=== PATIENT | female | born 1955 | race Caucasian/White ===

== ENCOUNTER 2017-10-20 13:29 | Emergency (ER) | payer OTHER ==
[~2017-10-20] VITALS: Ht 170.2 cm; Wt 142.9 kg
[~2017-10-20 13:29] MED LIST: ACEBUTCAFT PO; ALBIPROI INH; ALBU8HFA2 INH; ALBU90OI INH; AMLO10 PO; AMOX500 PO; ASPI325 PO; ASPI81CH PO; ASPI81EC PO; ATEN50 PO; AZIT250 PO; AZIT500 PO; BIOTENE1000 ML MM; BUSP10 PO; CAND16 PO; CHOL10002 PO; CYCL10 PO; DICL75ER PO; DIPH50; DIPH50 PO; DOXE10 PO; DULO60 PO; ERGO50000 PO; FISH1000 PO; FURO20 PO; FURO40 PO; GABA300 PO; GABA600 PO; GUAI600T33 PO; HYDACE5; HYDACE5 PO; HYDACE5325 PO; HYDACE7.5 PO; IBUP600 PO; IBUP800 PO; KETO15TC TOP; LEVSOD150 PO; LISI20 PO; METF500 PO; NAPR500 PO; NAPR550 PO; OXYACE5T PO; OXYC5; OXYCODONE; PRED20 PO; PROM25 PO; Percocet 5-3251 EACH PO; ROPI2 PO; ROPINIROLE HCL2 MG PO; RXOXYACE PO; SIMV10 PO; SIMV40 PO; TIOT18 IH; TIOT18 INH; TOPI50 PO; Ventolin Soln3 ML INH; Zithromax250 MG PO; [UNRECOGNIZED DRUG - OTHER] PO; [UNRECOGNIZED DRUG - REMARK]; [UNRECOGNIZED DRUG - SUPPLY] INH
== END 2017-10-20 14:24 | disposition home or self-care (01) ==
LOC: ER 13:29
DX: S93.601A Unspecified sprain of right foot, initial encounter (principal); S93.602A Unspecified sprain of left foot, initial encounter; S40.811A Abrasion of right upper arm, initial encounter; W17.89XA Other fall from one level to another, initial encounter; Z79.899 Other long term (current) drug therapy; Z79.84 Long term (current) use of oral hypoglycemic drugs; E11.9 Type 2 diabetes mellitus without complications; J44.9 Chronic obstructive pulmonary disease, unspecified; I10 Essential (primary) hypertension; E78.00 Pure hypercholesterolemia, unspecified; Z87.891 Personal history of nicotine dependence
CPT/HCPCS: 99282

== ENCOUNTER 2017-12-02 16:49 | Emergency (ER) | payer OTHER ==
[~2017-12-02] VITALS: Ht 170.2 cm; Wt 141.5 kg
[2017-12-02] MEDS ORDERED: METF500C (16:58)
[2017-12-02] MEDS ORDERED: OXYC10TA19 (16:58)
[2017-12-02] MEDS ORDERED: BACL10 (16:59)
[2017-12-02 17:33] LABS: BASOPHILS ABSOLUTE AUTO 0.03 K/mm3 (0.00-0.23); BASOPHILS PERCENT AUTO 0 % (0-2); EOSINOPHILS ABSOLUTE AUTO 0.11 K/mm3 (0.00-0.68); EOSINOPHILS PERCENT AUTO 1 % (0-6); Hemoglobin 11.1 g/dL (11.5-16.0); IMMATURE GRAN ABSOLUTE AUTO 0.04 K/mm3 (0.00-0.10); IMMATURE GRAN PERCENT AUTO 0 % (0-1); LYMPHOCYTES ABSOLUTE AUTO 2.39 K/mm3 (0.84-5.20); LYMPHOCYTES PERCENT AUTO 24 % (21-46); MONOCYTES PERCENT AUTO 7 % (4-13); Mean Corpuscular Volume 97 fL (80-100); Mean Platelet Volume 9.8 fL (9.1-12.4); NEUTROPHILS ABSOLUTE AUTO 6.56 K/mm3 (1.96-9.15); NEUTROPHILS PERCENT AUTO 67 % (41-73); Platelet Count 236 K/mm3 (150-400); RDW Coefficient Variation 15.5 % (11.7-14.2); RDW Standard Deviation 55.1 fL (35.1-46.3); Red Blood Cell Count 3.83 M/mm3 (3.80-5.20); White Blood Cell Count 9.83 K/mm3 (4.00-11.30)
[2017-12-02 17:45] LABS: International Normalized Ratio 0.99; Prothrombin Time Results 10.2 Sec (9.7-11.5)
[2017-12-02 17:53] LABS: Alanine Aminotransfer (ALT/SGP 22 U/L (12-78); Albumin, Blood 3.3 g/dL (3.4-5.0); Albumin/Globulin Ratio 0.9 (0.8-1.8); Alk Phos 92 U/L (50-136); Anion Gap 7 mmol/L (6-16); Aspartate Aminotrans (AST/SGOT 18 U/L (12-37); Bilirubin, Total 0.3 mg/dL (0.1-1.0); Blood Urea Nitrogen 18 mg/dL (8-24); Bun/Creatinine Ratio 22.7 (12.0-20.0); CO2, Blood 28 mmol/L (21-32); Calcium, Blood 9.1 mg/dL (8.5-10.1); Chloride, Blood 105 mmol/L (98-108); Creatinine, Blood 0.79 mg/dL (0.40-1.00); Globulin, Blood 3.7 g/dL (2.2-4.0); Glomerular Filtration Rate >60 (60-); Glucose, Blood 107 mg/dL (70-99); Potassium, Blood 3.8 mmol/L (3.5-5.5); Sodium, Blood 140 mmol/L (136-145); Troponin I <0.015 ng/mL (0.000-0.040)
[2017-12-02] MEDS ORDERED: Percocet 5-3251 EACH PO (20:02)
== END 2017-12-02 20:25 | disposition home or self-care (01) ==
LOC: ER 16:49
PROVIDERS: Emergency Medicine
DX: K85.90 Acute pancreatitis without necrosis or infection, unspecified (principal); J44.9 Chronic obstructive pulmonary disease, unspecified; E11.9 Type 2 diabetes mellitus without complications; I10 Essential (primary) hypertension; E78.00 Pure hypercholesterolemia, unspecified; E66.01 Morbid (severe) obesity due to excess calories; F32.9 Major depressive disorder, single episode, unspecified; Z79.899 Other long term (current) drug therapy; Z79.84 Long term (current) use of oral hypoglycemic drugs; Z87.891 Personal history of nicotine dependence; Z68.42 Body mass index [BMI] 45.0-49.9, adult
CPT/HCPCS: 71260; 76705; 80053; 83690; 84484; 85025; 85610; 85730; 93005; 93010; 96361; 96374; 96375; 99285-25; J2405; J3010; J7030; Q9967

== ENCOUNTER 2018-07-11 13:45 | Day surgery (SDC) | payer OTHER ==
[~2018-07-11] VITALS: Ht 170.2 cm; Wt 144.0 kg
[~2018-07-11 13:45] MED LIST changes: +BACL10; +BENZ100A PO; +METF500C; +OXYC10TA19
--- NOTE | 2018-07-11 15:35 | NUR ---
07/11/[address] INJECTED 10ML OF MARCAINE 0.5%V 1:200,000 FROM [id number] INTO LEFT WRIST. PULSE OX MONITORING DURING INJECTION. PT TOLERATED WELL.
== END 2018-07-11 16:27 | disposition home or self-care (01) ==
LOC: ORSCSDS 13:45
PROVIDERS: Orthopaedic Surgery
PROC: 01N54ZZ Release Median Nerve, Percutaneous Endoscopic Approach (ICD-10-PCS; principal; 2018-07-11 15:30)
DX: G56.02 Carpal tunnel syndrome, left upper limb (principal); E11.9 Type 2 diabetes mellitus without complications; I10 Essential (primary) hypertension; F32.9 Major depressive disorder, single episode, unspecified; E78.5 Hyperlipidemia, unspecified; G47.33 Obstructive sleep apnea (adult) (pediatric); E03.9 Hypothyroidism, unspecified; J44.9 Chronic obstructive pulmonary disease, unspecified; Z87.891 Personal history of nicotine dependence; E66.01 Morbid (severe) obesity due to excess calories; Z68.43 Body mass index [BMI] 50.0-59.9, adult; Z79.84 Long term (current) use of oral hypoglycemic drugs; Z79.899 Other long term (current) drug therapy
CPT/HCPCS: 82947; J0690; J2250; J3010; J7120

== ENCOUNTER 2018-10-09 16:03 | Inpatient (IN) | payer OTHER ==
[~2018-10-09] VITALS: Ht 170.2 cm; Wt 157.1 kg
[~2018-10-09 16:03] MED LIST changes: -BACL10; +BACL10 PO; -GABA600 PO; -METF500C; +METF500C PO; -OXYC10TA19; +OXYC10TA19 PO
[2018-10-09 18:34] LABS: PCO2 Arterial 52.7 mmHg (35-45); PO2 Arterial 63.8 mmHg (80-100); pH Blood Arterial 7.34 (7.35-7.45)
[2018-10-09 18:53] LABS: BASOPHILS ABSOLUTE AUTO 0.03 K/mm3 (0.00-0.23); BASOPHILS PERCENT AUTO 0 % (0-2); EOSINOPHILS ABSOLUTE AUTO 0.08 K/mm3 (0.00-0.68); EOSINOPHILS PERCENT AUTO 1 % (0-6); Hematocrit 37.8 % (33.0-51.0); Hemoglobin 11.1 g/dL (11.5-16.0); IMMATURE GRAN ABSOLUTE AUTO 0.02 K/mm3 (0.00-0.10); IMMATURE GRAN PERCENT AUTO 0 % (0-1); LYMPHOCYTES ABSOLUTE AUTO 2.03 K/mm3 (0.84-5.20); LYMPHOCYTES PERCENT AUTO 27 % (21-46); MONOCYTES ABSOLUTE AUTO 0.44 K/mm3 (0.16-1.47); MONOCYTES PERCENT AUTO 6 % (4-13); Mean Corpuscular HGB Conc 29.4 g/dL (31.5-36.5); Mean Corpuscular Volume 96 fL (80-100); Mean Platelet Volume 9.7 fL (9.1-12.4); NEUTROPHILS ABSOLUTE AUTO 4.96 K/mm3 (1.96-9.15); NEUTROPHILS PERCENT AUTO 66 % (41-73); Platelet Count 195 K/mm3 (150-400); RDW Coefficient Variation 17.2 % (11.7-14.2); RDW Standard Deviation 60.5 fL (35.1-46.3); Red Blood Cell Count 3.96 M/mm3 (3.80-5.20); White Blood Cell Count 7.56 K/mm3 (4.00-11.30)
[2018-10-09 19:18] LABS: Alanine Aminotransfer (ALT/SGP 19 U/L (12-78); Albumin, Blood 3.5 g/dL (3.4-5.0); Albumin/Globulin Ratio 0.9 (0.8-1.8); Alk Phos 99 U/L (50-136); Anion Gap 4 mmol/L (6-16); Aspartate Aminotrans (AST/SGOT 15 U/L (12-37); Bilirubin, Total 0.4 mg/dL (0.1-1.0); Blood Urea Nitrogen 10 mg/dL (8-24); Bun/Creatinine Ratio 16.1 (12.0-20.0); CO2, Blood 30 mmol/L (21-32); Calcium, Blood 9.1 mg/dL (8.5-10.1); Chloride, Blood 109 mmol/L (98-108); Creatinine, Blood 0.62 mg/dL (0.40-1.00); Globulin, Blood 3.8 g/dL (2.2-4.0); Glomerular Filtration Rate >60 (60-); Glucose, Blood 97 mg/dL (70-99); Potassium, Blood 3.9 mmol/L (3.5-5.5); Sodium, Blood 143 mmol/L (136-145); Total Protein, Blood 7.3 g/dL (6.4-8.2); Troponin I <0.015 ng/mL (0.000-0.040)
[2018-10-11 04:53] LABS: Anion Gap 2 mmol/L (6-16); Blood Urea Nitrogen 20 mg/dL (8-24); Bun/Creatinine Ratio 27.9 (12.0-20.0); CO2, Blood 33 mmol/L (21-32); Calcium, Blood 8.9 mg/dL (8.5-10.1); Chloride, Blood 106 mmol/L (98-108); Creatinine, Blood 0.72 mg/dL (0.40-1.00); Glomerular Filtration Rate >60 (60-); Glucose, Blood 135 mg/dL (70-99); Potassium, Blood 4.1 mmol/L (3.5-5.5); Sodium, Blood 141 mmol/L (136-145)
[2018-10-12 04:54] LABS: Anion Gap 4 mmol/L (6-16); Blood Urea Nitrogen 26 mg/dL (8-24); Bun/Creatinine Ratio 34.7 (12.0-20.0); CO2, Blood 35 mmol/L (21-32); Calcium, Blood 8.8 mg/dL (8.5-10.1); Chloride, Blood 103 mmol/L (98-108); Creatinine, Blood 0.75 mg/dL (0.40-1.00); Glomerular Filtration Rate >60 (60-); Glucose, Blood 108 mg/dL (70-99); Potassium, Blood 3.9 mmol/L (3.5-5.5); Sodium, Blood 142 mmol/L (136-145)
[2018-10-12] MEDS ORDERED: BENZ100A PO (12:35)
[2018-10-12] MEDS ORDERED: TIOT18 INH (12:36)
[2018-10-12] MEDS ORDERED: TORSE20 PO (12:36)
== END 2018-10-12 14:41 | disposition home or self-care (01) | DRG 291 ==
LOC: ER 16:03 → MEDS 19:49 → ER 19:49 → MEDS 19:49 → ENPENDDIS 10-12 11:31 → MEDS 10-12 14:41
PROVIDERS: Emergency Medicine; Internal Medicine; Physician Assistant; ADMIT Hospitalist
DX: I11.0 Hypertensive heart disease with heart failure (principal); J96.01 Acute respiratory failure with hypoxia; Z68.43 Body mass index [BMI] 50.0-59.9, adult; I50.33 Acute on chronic diastolic (congestive) heart failure; F32.9 Major depressive disorder, single episode, unspecified; E11.9 Type 2 diabetes mellitus without complications; E66.01 Morbid (severe) obesity due to excess calories; G47.30 Sleep apnea, unspecified; J44.9 Chronic obstructive pulmonary disease, unspecified; Z87.891 Personal history of nicotine dependence; Z79.84 Long term (current) use of oral hypoglycemic drugs; Z79.899 Other long term (current) drug therapy
CPT/HCPCS: 36415; 36600; 71046; 80048; 80053; 82803; 82947; 83880; 84145; 84443; 84484; 85025; 93005; 93010; 93306; 94640; 94660; 94761; 94762; 96374; 99285-25; A9270; G0378; J1650; J1940; J2930

== ENCOUNTER 2018-10-20 22:46 | Emergency (ER) | payer OTHER ==
[~2018-10-20] VITALS: Ht 170.2 cm; Wt 150.6 kg
[~2018-10-20 22:46] MED LIST changes: +TORSE20 PO
[2018-10-20 22:58] LABS: BASOPHILS ABSOLUTE AUTO 0.03 K/mm3 (0.00-0.23); BASOPHILS PERCENT AUTO 0 % (0-2); EOSINOPHILS ABSOLUTE AUTO 0.12 K/mm3 (0.00-0.68); EOSINOPHILS PERCENT AUTO 1 % (0-6); Hematocrit 37.2 % (33.0-51.0); Hemoglobin 11.1 g/dL (11.5-16.0); IMMATURE GRAN ABSOLUTE AUTO 0.02 K/mm3 (0.00-0.10); IMMATURE GRAN PERCENT AUTO 0 % (0-1); LYMPHOCYTES ABSOLUTE AUTO 2.85 K/mm3 (0.84-5.20); LYMPHOCYTES PERCENT AUTO 34 % (21-46); MONOCYTES ABSOLUTE AUTO 0.46 K/mm3 (0.16-1.47); MONOCYTES PERCENT AUTO 5 % (4-13); Mean Corpuscular HGB 28.7 pg (26.0-34.0); Mean Corpuscular HGB Conc 29.8 g/dL (31.5-36.5); Mean Corpuscular Volume 96 fL (80-100); Mean Platelet Volume 10.3 fL (9.1-12.4); NEUTROPHILS ABSOLUTE AUTO 4.99 K/mm3 (1.96-9.15); NEUTROPHILS PERCENT AUTO 59 % (41-73); Platelet Count 219 K/mm3 (150-400); RDW Coefficient Variation 16.5 % (11.7-14.2); RDW Standard Deviation 58.3 fL (35.1-46.3); Red Blood Cell Count 3.87 M/mm3 (3.80-5.20); White Blood Cell Count 8.47 K/mm3 (4.00-11.30)
[2018-10-20 23:19] LABS: Alanine Aminotransfer (ALT/SGP 27 U/L (12-78); Albumin, Blood 3.4 g/dL (3.4-5.0); Albumin/Globulin Ratio 0.9 (0.8-1.8); Alk Phos 94 U/L (50-136); Anion Gap 5 mmol/L (6-16); Aspartate Aminotrans (AST/SGOT 20 U/L (12-37); Bilirubin, Total 0.3 mg/dL (0.1-1.0); Blood Urea Nitrogen 20 mg/dL (8-24); Bun/Creatinine Ratio 20.7 (12.0-20.0); CO2, Blood 29 mmol/L (21-32); Calcium, Blood 9.6 mg/dL (8.5-10.1); Chloride, Blood 106 mmol/L (98-108); Creatinine, Blood 0.97 mg/dL (0.40-1.00); Globulin, Blood 3.6 g/dL (2.2-4.0); Glomerular Filtration Rate >60 (60-); Glucose, Blood 144 mg/dL (70-99); Potassium, Blood 4.4 mmol/L (3.5-5.5); Sodium, Blood 140 mmol/L (136-145); Troponin I <0.015 ng/mL (0.000-0.040)
== END 2018-10-21 02:00 | disposition home or self-care (01) ==
LOC: ER 22:46
PROVIDERS: Emergency Medicine
DX: R07.9 Chest pain, unspecified (principal); Z79.899 Other long term (current) drug therapy; Z79.84 Long term (current) use of oral hypoglycemic drugs; J44.9 Chronic obstructive pulmonary disease, unspecified; E11.9 Type 2 diabetes mellitus without complications; I10 Essential (primary) hypertension; F32.9 Major depressive disorder, single episode, unspecified; Z87.891 Personal history of nicotine dependence
CPT/HCPCS: 71046; 80053; 83735; 83880; 84484; 85025; 93005; 93010; 99285-25

== ENCOUNTER 2019-01-16 22:11 | Emergency (ER) | payer OTHER ==
[~2019-01-16] VITALS: Ht 170.2 cm; Wt 158.8 kg
[2019-01-16 22:48] LABS: BASOPHILS ABSOLUTE AUTO 0.03 K/mm3 (0.00-0.23); BASOPHILS PERCENT AUTO 0 % (0-2); EOSINOPHILS ABSOLUTE AUTO 0.21 K/mm3 (0.00-0.68); EOSINOPHILS PERCENT AUTO 3 % (0-6); Hematocrit 32.4 % (33.0-51.0); Hemoglobin 9.7 g/dL (11.5-16.0); IMMATURE GRAN ABSOLUTE AUTO 0.06 K/mm3 (0.00-0.10); IMMATURE GRAN PERCENT AUTO 1 % (0-1); LYMPHOCYTES ABSOLUTE AUTO 2.28 K/mm3 (0.84-5.20); LYMPHOCYTES PERCENT AUTO 29 % (21-46); MONOCYTES ABSOLUTE AUTO 0.57 K/mm3 (0.16-1.47); MONOCYTES PERCENT AUTO 7 % (4-13); Mean Corpuscular HGB 30.1 pg (26.0-34.0); Mean Corpuscular HGB Conc 29.9 g/dL (31.5-36.5); Mean Corpuscular Volume 101 fL (80-100); Mean Platelet Volume 9.8 fL (9.1-12.4); NEUTROPHILS PERCENT AUTO 60 % (41-73); Platelet Count 237 K/mm3 (150-400); RDW Coefficient Variation 15.2 % (11.7-14.2); RDW Standard Deviation 56.3 fL (35.1-46.3); Red Blood Cell Count 3.22 M/mm3 (3.80-5.20); White Blood Cell Count 7.95 K/mm3 (4.00-11.30)
[2019-01-16 23:08] LABS: Alanine Aminotransfer (ALT/SGP 21 U/L (12-78); Albumin, Blood 3.6 g/dL (3.4-5.0); Albumin/Globulin Ratio 0.9 (0.8-1.8); Alk Phos 102 U/L (50-136); Anion Gap 6 mmol/L (6-16); Aspartate Aminotrans (AST/SGOT 17 U/L (12-37); Bilirubin, Total 0.4 mg/dL (0.1-1.0); Blood Urea Nitrogen 15 mg/dL (8-24); Bun/Creatinine Ratio 22.2 (12.0-20.0); CO2, Blood 27 mmol/L (21-32); Calcium, Blood 9.4 mg/dL (8.5-10.1); Chloride, Blood 107 mmol/L (98-108); Creatinine, Blood 0.68 mg/dL (0.40-1.00); Globulin, Blood 3.8 g/dL (2.2-4.0); Glomerular Filtration Rate >60 (60-); Glucose, Blood 111 mg/dL (70-99); Potassium, Blood 3.8 mmol/L (3.5-5.5); Sodium, Blood 140 mmol/L (136-145); Total Protein, Blood 7.4 g/dL (6.4-8.2); Troponin I <0.015 ng/mL (0.000-0.040)
[2019-01-17 01:24] LABS: PCO2 Arterial 50.7 mmHg (35-45); PO2 Arterial 117 mmHg (80-100); pH Blood Arterial 7.33 (7.35-7.45)
[2019-01-17] MEDS ORDERED: DAPS100 PO (01:26)
[2019-01-17] MEDS ORDERED: Ropinirole HCl2 MG PO (01:31)
[2019-01-17] MEDS ORDERED: CARV6.25 PO (01:31)
[2019-01-17] MEDS ORDERED: SPIR25 PO (01:32)
[2019-01-17] MEDS ORDERED: Prednisone20 MG PO (02:50)
== END 2019-01-17 03:50 | disposition home or self-care (01) ==
LOC: ER 22:11
PROVIDERS: Emergency Medicine
DX: J44.1 Chronic obstructive pulmonary disease with (acute) exacerbation (principal); I11.0 Hypertensive heart disease with heart failure; I50.9 Heart failure, unspecified; E11.9 Type 2 diabetes mellitus without complications; E78.00 Pure hypercholesterolemia, unspecified; F32.9 Major depressive disorder, single episode, unspecified; Z87.891 Personal history of nicotine dependence; Z79.899 Other long term (current) drug therapy; Z79.84 Long term (current) use of oral hypoglycemic drugs
CPT/HCPCS: 36415; 36600; 71046; 80053; 82803; 83880; 84484; 85025; 93005; 93010; 94640; 96374; 96375; 99285-25; J2930; J3475

== ENCOUNTER 2019-02-14 23:28 | Inpatient (IN) | payer OTHER ==
[~2019-02-14] VITALS: Ht 170.2 cm; Wt 158.8 kg
[~2019-02-14 23:28] MED LIST changes: +CARV6.25 PO; -CHOL10002 PO; +DAPS100 PO; +LEVSOD50 PO; +Prednisone20 MG PO; +Ropinirole HCl2 MG PO; +SPIR25 PO; +TORS10 PO; -TORSE20 PO; +VITAMIN D31 ML PO
[2019-02-15 00:21] LABS: Source, Urine Catheter
[2019-02-15 00:24] LABS: Blood, Urine 1+ (Neg); Glucose Qualitative, Urine Neg (Neg); Ketones, Urine Neg (Neg); Leukocyte Esterase, Urine Neg (Neg); Nitrite, Urine Neg (Neg); Protein, Urine 1+ (Neg); Urobilinogen, Urine NORM (Normal)
[2019-02-15 00:32] LABS: Appearance, Urine Hazy (Clear); Bilirubin, Urine 1+ (Neg); Color, Urine Amber (P-Yellow)
[2019-02-15 00:33] LABS: Amorphous Mod (0-Heavy); Bacteria Few /hpf; Hyaline Casts 50-100 /lpf (0-2); Red Blood Cells, Urine 0-2 /hpf (0-2); Squamous Epithelial Cells Mod /hpf (Few); White Blood Cells, Urine Not Seen /hpf (0-5)
[2019-02-15 00:41] LABS: BASOPHILS ABSOLUTE AUTO 0.02 K/mm3 (0.00-0.23); BASOPHILS PERCENT AUTO 0 % (0-2); EOSINOPHILS ABSOLUTE AUTO 0.13 K/mm3 (0.00-0.68); EOSINOPHILS PERCENT AUTO 2 % (0-6); Hematocrit 29.2 % (33.0-51.0); Hemoglobin 8.5 g/dL (11.5-16.0); IMMATURE GRAN ABSOLUTE AUTO 0.03 K/mm3 (0.00-0.10); IMMATURE GRAN PERCENT AUTO 0 % (0-1); LYMPHOCYTES ABSOLUTE AUTO 2.07 K/mm3 (0.84-5.20); LYMPHOCYTES PERCENT AUTO 29 % (21-46); MONOCYTES ABSOLUTE AUTO 0.54 K/mm3 (0.16-1.47); MONOCYTES PERCENT AUTO 8 % (4-13); Mean Corpuscular HGB 30.5 pg (26.0-34.0); Mean Corpuscular HGB Conc 29.1 g/dL (31.5-36.5); Mean Corpuscular Volume 105 fL (80-100); Mean Platelet Volume 10.2 fL (9.1-12.4); NEUTROPHILS PERCENT AUTO 61 % (41-73); Platelet Count 233 K/mm3 (150-400); RDW Coefficient Variation 15.2 % (11.7-14.2); RDW Standard Deviation 58.9 fL (35.1-46.3); Red Blood Cell Count 2.79 M/mm3 (3.80-5.20); White Blood Cell Count 7.19 K/mm3 (4.00-11.30)
[2019-02-15 00:59] LABS: International Normalized Ratio 0.96; Prothrombin Time Results 10.2 Sec (9.7-11.5)
[2019-02-15 01:04] LABS: Albumin, Blood 3.4 g/dL (3.4-5.0); Bilirubin, Total 0.3 mg/dL (0.1-1.0); Calcium, Blood 8.4 mg/dL (8.5-10.1); Creatinine, Blood 3.54 mg/dL (0.40-1.00); Globulin, Blood 3.4 g/dL (2.2-4.0); Potassium, Blood 4.9 mmol/L (3.5-5.5); Total Protein, Blood 6.8 g/dL (6.4-8.2)
[2019-02-15 03:27] LABS: PO2 Arterial 115 mmHg (80-100)
[2019-02-15 03:28] LABS: pH Blood Arterial 7.21 (7.35-7.45)
--- NOTE | 2019-02-15 04:50 | NUR ---
PT ARRIVES FROM ER, ADMITTED PCU STATUS PT TO ICU ROOM 2, PT RESPONDS TO VERBAL STIMULI ON ARRIVAL BY OPENING EYES, MUMBLED OCCASIONAL WORDS IN RESPONSE HOWEVER SOMEWHAT NONSENSICAL. HRR, SINUS WITH SINUS ARRHYTHMIA NOTED ON MONITOR, PULSES PALPABLE, SKIN WARM AND DRY, CAP REFILL 3 SEC BILAT LOWER EXTREMITIES. LUNGS WITH EXP WHEEZES T/O, DIM BASES BILAT, BIPAP IN USE, ADJUSTMENTS PER RT AT BEDSIDE AT THIS TIME, SATS MID 90S, PT TOLERATING BIPAP WELL AT THIS TIME. ABD DISTENDED, FIRM TO PALP, NORMOACTIVE BOWEL TONES X 4. TEMP PROBE CENTENO IN PLACE DRAINING HAZY BRY URINE, GREATER THAN 350 ML PRESENT IN DRAINAGE BAG ON ARRIVAL. IV ACCESS 22G FIELD START NOTED TO RIGHT WRIST, FLUSHES WELL, NO REDNESS, SWELLING, OR DRAINAGE NOTED. SCD'S APPLIED PER ORDERS, NORMAL SALINE STARTED AT 150 ML/HR PER ORDERS, PROTONIX GTT CONTINUES. WILL MONITOR FOR CHANGES.
[2019-02-15 05:10] LABS: Hematocrit 29.3 % (33.0-51.0); Hemoglobin 8.5 g/dL (11.5-16.0); Mean Corpuscular Volume 104 fL (80-100); Platelet Count 217 K/mm3 (150-400); RDW Standard Deviation 56.8 fL (35.1-46.3); Red Blood Cell Count 2.83 M/mm3 (3.80-5.20); White Blood Cell Count 7.28 K/mm3 (4.00-11.30)
[2019-02-15 05:27] LABS: International Normalized Ratio 0.97; Prothrombin Time Results 10.3 Sec (9.7-11.5)
--- NOTE | 2019-02-15 08:20 | NUR ---
ASSUMED CARE AT 0700. REPORT FROM RYLEE SANDERS. DR SALEEM AT BEDSIDE FOR ASSESSMENT. PT ON BIPAP, 03/11, 25%. LUNGS DIMISHED THROUGHOUT. PT MORBIDLY OBESE. OPENS EYES TO VERBAL STIMULI. FOLLOWS SIMPLE DIRECTIONS. MUMBLING SPEECH. ABD FIRM, DISTENDED. NO PAIN c PALPATION. CENTENO PATENT AND DRAINING TO GRAVITY. BRY URINE c SEDIMENT. VSS. PROTONIX INFUSING. WILL PLAN FOR POWERGLIDE PLACEMENT TODAY. CALL LIGHT IN REACH. WILL CONTINUE TO MONITOR.
[2019-02-15 08:22] LABS: Hematocrit 28.4 % (33.0-51.0); Hemoglobin 8.3 g/dL (11.5-16.0); Mean Corpuscular HGB 30.2 pg (26.0-34.0); Mean Corpuscular HGB Conc 29.2 g/dL (31.5-36.5); Mean Corpuscular Volume 103 fL (80-100); Mean Platelet Volume 10.1 fL (9.1-12.4); Platelet Count 221 K/mm3 (150-400); RDW Coefficient Variation 15.1 % (11.7-14.2); RDW Standard Deviation 57.3 fL (35.1-46.3); Red Blood Cell Count 2.75 M/mm3 (3.80-5.20); White Blood Cell Count 6.94 K/mm3 (4.00-11.30)
[2019-02-15 08:31] LABS: Bun/Creatinine Ratio 16.8 (12.0-20.0); Calcium, Blood 8.3 mg/dL (8.5-10.1); Creatinine, Blood 3.04 mg/dL (0.40-1.00); Potassium, Blood 5.3 mmol/L (3.5-5.5)
[2019-02-15 08:32] LABS: U Amphetamine Screen Not Detected; U Barbituate Screen Not Detected; U Benzodiazapine Screen Not Detected; U Buprenorphine Screen Not Detected; U Cannabinoids Screen Not Detected; U Cocaine Screen Not Detected; U Methadone Screen Not Detected; U Methamphetamine Screen Not Detected; U Opiates Screen Not Detected; U Oxycodone Screen DETECTED; U Phencyclidine Screen Not Detected; U Propoxyphene Screen Not Detected
--- NOTE | 2019-02-15 11:20 | NUR ---
PARTIAL HX OBTAINED FROM SISTER. REPORT TO [facility]. PT TRANSFERRED. ALL BELONGINGS c PT.
--- NOTE | 2019-02-15 11:33 | NUR ---
PT ARRIVED FROM ICU, BIPAP IN PLACE, SUDS IN PLACE, FLUIDS INFUSING. PT CONFUSED, DROWSY, LOOKS AROUND TO VERBAL SIMULI, VSS,
--- NOTE | 2019-02-15 16:33 | NUR ---
PT AWAKENS EASILY TO VERBAL STIMULI, ABLE TO ANSWER YES AND NO QUESTIONS, REMAINS VERY DROWSY. VSS
--- NOTE | 2019-02-15 16:50 | NUR ---
SHIFT NOTE PT ARRIVED FROM ICU WITH DECREASED LOC, OCCASIONALLY OPEN EYES TO VERBAL STIMULI. PT TRASNFERED BETWEEN GURNEYS WITH USE OF GINA LIFT. ARRIVED ON BIPAP WITH RT PRESENT PT APPEARS TO TOLERATE BIPAP WELL. NO FAMILY WITH PT. LS DIMENISHED T/O. VSS ON ARRIVAL. T/O SHIFT PT BECAME MORE ARROUSABLE, ANSWERING YES AND NO QUESTIONS ALTHOUGH REMAINS DROWSY. FAMILY DID COME TO VISIT, DAUGHTER LEFT NUMBER ON ROOM WHITE BOARD. PT REPOSITIONS SELF OFTEN FOR COMFORT.
--- NOTE | 2019-02-15 20:41 | NUR ---
ASSUMED CARE OF PATIENT AT [facility] 1900 FROM KENDAL Aden RN. PATIENT RESPONDS TO VERBAL STIMULUS; ANSWERS YES OR NO; MUMBLES. PATIENT FALLS BACK ASLEEP EASILY. PATIENT BEDREST; WEAKNESS; OBESE; Q2H TURN WITH CEILING LIFT. NO S/S OF PAIN NOTED. BIPAP IN PLACE 03/11 35% FIO2; WAS 25% FIO2 AT START OF SHIFT; DESAT TO 86% WHILE SLEEPING. NSR ON TELE; OXYGEN SATURATION ABOVE 90% ON BIPAP; L/S DIMINISHED T/O. NS INFUSING TO PIV AT SHIFT CHANGE ON 05/25 BAG; NO ORDERS FOR FLUIDS. DR. MIRANDA CALLED DUE TO PATIENT BEING NPO; DIABETIC; AC/HS CBG; NO MORE ORDERS FOR FLUIDS; LAST CBG WAS 91 AND PROTONIC GTT WAS NOT INFUSING; GI HAD PUT IN NOTE FOR PROTONIX BID IV; ORDERS RECIEVED FOR Q4 CBG; D5NS AT 75ML, PROTONIX IV BID; CALL FOR INSULIN ORDERS WHEN CBG IMPROVE. URINARY CATH DRAINING. SCDS IN PLACE; GLORIA PURDY CURRENTLY RESTING IN BED; CALL LIGHT IN REACH; BED IN LOWEST POSISTION; BED ALARM ON; WILL CONTINUE TO MONITOR AND ASSESS UNTIL END OF SHIFT.
[2019-02-16 04:37] LABS: BASOPHILS ABSOLUTE AUTO 0.01 K/mm3 (0.00-0.23); BASOPHILS PERCENT AUTO 0 % (0-2); EOSINOPHILS ABSOLUTE AUTO 0.08 K/mm3 (0.00-0.68); EOSINOPHILS PERCENT AUTO 2 % (0-6); Hematocrit 29.3 % (33.0-51.0); Hemoglobin 8.3 g/dL (11.5-16.0); IMMATURE GRAN ABSOLUTE AUTO 0.02 K/mm3 (0.00-0.10); IMMATURE GRAN PERCENT AUTO 0 % (0-1); LYMPHOCYTES ABSOLUTE AUTO 1.28 K/mm3 (0.84-5.20); LYMPHOCYTES PERCENT AUTO 24 % (21-46); MONOCYTES ABSOLUTE AUTO 0.44 K/mm3 (0.16-1.47); MONOCYTES PERCENT AUTO 8 % (4-13); Mean Corpuscular HGB 29.3 pg (26.0-34.0); Mean Corpuscular HGB Conc 28.3 g/dL (31.5-36.5); Mean Corpuscular Volume 104 fL (80-100); Mean Platelet Volume 10.3 fL (9.1-12.4); NEUTROPHILS ABSOLUTE AUTO 3.45 K/mm3 (1.96-9.15); NEUTROPHILS PERCENT AUTO 65 % (41-73); Platelet Count 208 K/mm3 (150-400); RDW Coefficient Variation 14.9 % (11.7-14.2); RDW Standard Deviation 56.4 fL (35.1-46.3); Red Blood Cell Count 2.83 M/mm3 (3.80-5.20); White Blood Cell Count 5.28 K/mm3 (4.00-11.30)
[2019-02-16 04:49] LABS: Bun/Creatinine Ratio 24.8 (12.0-20.0); Calcium, Blood 8.4 mg/dL (8.5-10.1); Creatinine, Blood 1.57 mg/dL (0.40-1.00); Potassium, Blood 5.2 mmol/L (3.5-5.5)
--- NOTE | 2019-02-16 06:19 | NUR ---
PATIENT SLEPT ABOUT TEN HOURS LAST NIGHT WITH BIPAP IN PLACE. VSS. NO ACUTE CHANGES TO REPORT. WILL CONTINUE TO MONITOR AND ASSESS UNTIL END OF SHIFT.
--- NOTE | 2019-02-16 08:20 | NUR ---
PT REMOVED FROM BIPAP IS MAINTING SPO2 AT 94% ON 4L O2 VIA NASAL CANNULA
--- NOTE | 2019-02-16 10:46 | NUR ---
THIS RN ARRIVED TO ROOM AT 0930 PT WITNESSED PULLING IN FROM LT HAND STS "THAT WAS STUPID" PRESSURE DRESSING APPLIED TO HAND TO STOP BLEEDING. PT'S LINENS CHANGED. PT ABLE TO ROLL SIDE TO SIDE. PT SOBBING, CONFUSED ORIENTED ONLY TO SELF. PT ATTEMPTING TO CLIMB FROM BED, DIFFULT TO REDIRECT, STS "I HAVE TO PEE" ATTEMPTING TO VERBALLY REDIRECT PT FROM EXITING BED, ADDIITIONAL STAFF CALLED TO ROOM WAREHOUSE RECORD CLERK JODY AND PCT NATALI. PT SHOUTING DEMANDING TO CALL DAUGHTER WHEN PROVIDED WITH PHONE BEGINS STATING SHE IS GOING TO CALL 911 SHE IS NOT ALLOWED TO GET OUT OF BED. PT RE-ORIENTED TO ROOM BUT DOES NOT RECALL TEACHING FOR LONG BEFORE AGAIN TRYING TO EXIT THE BED ADN STATING SHE IS CALLING 911. PT HAS ALSO COMPRIMISED POWERGLIDE TO DANIEL AT WHILE ATTEMPTING TO EXIT BED. WAREHOUSE RECORD CLERK JODY CALLED TO ROOM TO ASSESS POWERGLIDE, SHE WAS ABLE TO CHANGE THE DRESSING BUT IV WILL NOT FLUSH WELL.
--- NOTE | 2019-02-16 11:51 | NUR ---
PT REMAINS CONFUSED, IS COOPERATIVE AT THIS TIME HAS NOT ATTEMPTED TO EXIT GURNEY
--- NOTE | 2019-02-16 18:32 | NUR ---
SHIFT NOTE AT THE BEGINING OF SHIFT PT WAS SLEEPING, EASY TO ARROUSE WITH VERBAL SIMULI. DECISION WAS MADE TO REMOVE BIPAP FOR TRIAL, PT BECOMES MORE AWAKE ONCE BIPAP REMOVED. PT THEN BEGAN TRYING TO EXIT KENDELL, SWINING ARMS AT STAFF, SHOUTING OUT THAT SHE IS BEING HELD HOSTAGE AND ASKING FOR PHONE TO CALL 911. PT PULLED MANNY FROM RT HAND, IV SITE DRESSED WITH PRESSURE DRESSING. PT CONFUSED UNABLE TO ORIENT PT, THIS RN WAS AT BEDSIDE FOR 1.5 HOURS TO MONITOR PT SHE IS VERY CONFUSED. PT PROGRESSIVELY T/O SHIFT BECOMES MORE ALERT AND ORIENTED IS INTERMITTENTLY ORIENTED TO SELF AND PLACE. PT REMOVES NUMEROUS FEM STOPS, AND ATTEMPTS TO REMOVED HER CENTENO, LINES ARE ABLE TO BE CONCEALED SO THAT SHE STOPS PULLING AT CENTENO. PT OTHERWISE MAINTAINED SPO2 AT 95% ON 5L O2 THAT WAS TITRATED TO 3L O2 WHICH SHE WAS ABLE TO MAINTAIN SPO2 OF 94% ON THAT 3L. CLEAR LIQUID DIET WAS CHANGED TO ADA AFTER A CALL TO DR SALEEM TOWARDS THE END OF THE SHIFT. PT PROVIDED WITH DINNER TRAY WHICH SHE WAS REFUSING "IT'S DIET" PT REMINDED OF HER ADA DIET, FAMILY THEN EXPRESSED CONCERN THAT PT WAS BEING GIVEN "DIET FOOD" ALL ARE AGAIN EDUCATED THAT SUGAR SODA WILL NOT BE PRVODED PART OF AN ADA DIET.
--- NOTE | 2019-02-16 19:59 | NUR ---
ASSUMED CARE Pt presents lying in bed on right side. When addressing pt, she turns self independantly, answers questions appropriately but with some delay in response. Also, when asked what pt's daughters name is, pt responds "melissa", then when asked where she is, pt responds "melissa. wait I mean [facility]". VSS, breathing easy and unlabored on 3L NC. Tylenol given d/t complaint of headache at 5/10. Pt able to swallow pills whole with water. Pt is in no apparent sign of distress. SCDs on and functioning. Will continue to monitor and provide care per orders.
--- NOTE | 2019-02-16 21:18 | NUR ---
DAUGHTER JOLENE AT BEDSIDE; UPDATED ON PLAN OF CARE. DAUGHTER IS TO STAY OVER THIS NIGHT. PT STAT LOCK REPLACED ON BOTH CENTENO AND POWERGLIDE, POWERGLIDE DSNG CHANGED THIS SHIFT. POWERGLIDE FLUSHES PATENT.
--- NOTE | 2019-02-16 22:45 | NUR ---
Provider called: Dr. Macias called; CBG changed from q4 to ACHS d/t diet order. Insulin low sliding scale ordered per provider.
--- NOTE | 2019-02-16 22:54 | NUR ---
PT PLACED ON BIPAP FOR SLEEP AT THIS TIME
--- NOTE | 2019-02-17 02:32 | NUR ---
Pt all bipap at 0230 per pt request. NC placed on pt at 3L; o2 saturations remains >92%; denies SOB or difficulty breathing at this time. Will continue to monitor and provide care per orders.
[2019-02-17 03:26] LABS: BASOPHILS ABSOLUTE AUTO 0.01 K/mm3 (0.00-0.23); BASOPHILS PERCENT AUTO 0 % (0-2); EOSINOPHILS ABSOLUTE AUTO 0.08 K/mm3 (0.00-0.68); EOSINOPHILS PERCENT AUTO 2 % (0-6); Hematocrit 27.8 % (33.0-51.0); Hemoglobin 8.1 g/dL (11.5-16.0); IMMATURE GRAN ABSOLUTE AUTO 0.02 K/mm3 (0.00-0.10); IMMATURE GRAN PERCENT AUTO 0 % (0-1); LYMPHOCYTES ABSOLUTE AUTO 1.57 K/mm3 (0.84-5.20); LYMPHOCYTES PERCENT AUTO 33 % (21-46); MONOCYTES ABSOLUTE AUTO 0.34 K/mm3 (0.16-1.47); MONOCYTES PERCENT AUTO 7 % (4-13); Mean Corpuscular HGB 30.7 pg (26.0-34.0); Mean Corpuscular HGB Conc 29.1 g/dL (31.5-36.5); Mean Corpuscular Volume 105 fL (80-100); Mean Platelet Volume 9.9 fL (9.1-12.4); NEUTROPHILS ABSOLUTE AUTO 2.73 K/mm3 (1.96-9.15); NEUTROPHILS PERCENT AUTO 57 % (41-73); Platelet Count 189 K/mm3 (150-400); RDW Coefficient Variation 14.6 % (11.7-14.2); RDW Standard Deviation 57.5 fL (35.1-46.3); Red Blood Cell Count 2.64 M/mm3 (3.80-5.20); White Blood Cell Count 4.75 K/mm3 (4.00-11.30)
[2019-02-17 03:41] LABS: Anion Gap 3 mmol/L (6-16); Blood Urea Nitrogen 20 mg/dL (8-24); Bun/Creatinine Ratio 21.6 (12.0-20.0); CO2, Blood 27 mmol/L (21-32); Calcium, Blood 8.8 mg/dL (8.5-10.1); Chloride, Blood 115 mmol/L (98-108); Creatinine, Blood 0.92 mg/dL (0.40-1.00); Glomerular Filtration Rate >60 (60-); Glucose, Blood 113 mg/dL (70-99); Potassium, Blood 4.7 mmol/L (3.5-5.5); Sodium, Blood 145 mmol/L (136-145)
--- NOTE | 2019-02-17 05:59 | NUR ---
Shift Summary VSS this shift, pt alternates between 3L NC (baseline) and BIPAP. Pt is alert this shift and oriented to person, place, event, but disoriented to date and time. Pt can identify family member in room and able to answer most questions apprpriately however some simple questions needs cues to answer appropriately. No acute declines noted from initial shift assessment. Pt remains with zhao catheter, patent and draining with approx 1200 ml output this shift. Pt has powerglide to DANIEL, flushes and draws patent. Dressing changed this shift. Pt has not attempted to pull on lines or cords this shift, follows commands, and cooperative with care. this pt requires bedpan for BM. CBG ACHS, insulin on low SS per Dr. Macias. Pt with daughter at bedside this night. Will continue to monitor and provide care per orders until day RN assumes care.
--- NOTE | 2019-02-17 15:54 | NUR ---
Spiritual care visit conducted. Patient shares about the events that led to her hospitalization and what was discovered once she was admitted. Patient tells me about her family unit complications and about her maria victoria. I listen empathically, normalize her experience and provide prayer. Patient responds well and shows signs of an elevated mood. I will continue to remain available to patient and family.
--- NOTE | 2019-02-17 17:02 | NUR ---
SHIFT SUMMARY PT RESTING QUIETLY ON BIPAP THIS AM, DURING SHIFT REPORT. PT WOKE EASILY FOR CARE. CBG'S WNL'S. DR SALEEM IN EARLY TO SEE PT. JACOBO BALLARD D/C'D PER ORDERS. PT HAS BEEN UP WITH 1P SBA USING FWW TO BTHRM AND BACK. CALLS APPROPRIATELY FOR ASSIST. PT REPORTED NAUSEA WHEN FIRST AWAKE; MEDICATED PER EMAR. NO FURTHER C/O. PT HAS BEEN PLEASANT AND CO-OP. A&O, AND CONTINUES TO IMPROVE THRU OUT THE DAY. PT ORIGINALLY ADMITTED FOR POSSIBLE GIB, BUT FOUND TO BE HEMORRHOIDS. CALAZIME LOTION APPLIED. PT REPORTED IT HELPFUL. PER SHIFT REPORT, PT TO F/U OUTPT FOR HEMORRHOIDS. PT IS MORBIDLY OBESE, MAKING MOBILITY A LITTLE MORE DIFFICULT, BUT IMPROVING IN THAT WELL. BASELINE 3L O2 WNL. HX OF DM, CHF, HTN, COPD AND RIA. CALL LT IN REACH.
[2019-02-18 05:15] LABS: Anion Gap 5 mmol/L (6-16); Blood Urea Nitrogen 16 mg/dL (8-24); Bun/Creatinine Ratio 18.2 (12.0-20.0); CO2, Blood 26 mmol/L (21-32); Calcium, Blood 8.9 mg/dL (8.5-10.1); Chloride, Blood 112 mmol/L (98-108); Creatinine, Blood 0.88 mg/dL (0.40-1.00); Glomerular Filtration Rate >60 (60-); Glucose, Blood 115 mg/dL (70-99); Potassium, Blood 4.5 mmol/L (3.5-5.5); Sodium, Blood 143 mmol/L (136-145)
--- NOTE | 2019-02-18 06:50 | NUR ---
Shift Summary VSS this shift, pt with no acute declines to note and no complaints throughout the shift. Pt pain within proportion, denies need for pain medication for management this shift. No acute signs of distress, breathing remains easy, even, unlabored on baseline NC at 3L. Pt with powerglide; S/L; no acute changes from initial shift assessment. Pt to bsc for voiding, repositions self to comfort. Pt changed positions multiple times independantly this shift. Pt remains alert and oriented. Handoff given to day Rn who assumes care
--- NOTE | 2019-02-18 12:34 | NUR ---
DISCHARGE NOTE PT ALERT AND ORIENTED. VS STABLE. DISCHARGE INSTRUCTIONS PROVIDED. MEDICATIONS GONE OVER WITH PATIENT. ALL QUESTIONS ANSWERED. PT DAUGHTER IN WITH PORTABLE O2. POWERGLIDE TO RIGHT UPPER ARM REMOVED AND INTACT. PT TAKEN OUT BY WHEELCHAIR.
== END 2019-02-18 12:39 | disposition home or self-care (01) | DRG 91 ==
LOC: ER 23:28 → PCU 02-15 04:30 → ICUW 02-15 04:30 → ICUE 02-15 04:49 → PCU 02-15 11:24
PROVIDERS: Emergency Medicine; Hospitalist; ADMIT Internal Medicine
PROC: 5A09357 Assistance with Respiratory Ventilation, Less than 24 Consecutive Hours, Continuous Positive Airway Pressure (ICD-10-PCS; principal; 2019-02-15)
DX: G92 Toxic encephalopathy (principal); J96.22 Acute and chronic respiratory failure with hypercapnia; K62.5 Hemorrhage of anus and rectum; I13.0 Hypertensive heart and chronic kidney disease with heart failure and stage 1 through stage 4 chronic kidney disease, or unspecified chronic kidney disease; N17.9 Acute kidney failure, unspecified; D62 Acute posthemorrhagic anemia; I50.32 Chronic diastolic (congestive) heart failure; Z68.43 Body mass index [BMI] 50.0-59.9, adult; E66.2 Morbid (severe) obesity with alveolar hypoventilation; T48.201A Poisoning by unspecified drugs acting on muscles, accidental (unintentional), initial encounter; K64.9 Unspecified hemorrhoids; E66.01 Morbid (severe) obesity due to excess calories; E03.9 Hypothyroidism, unspecified; J44.9 Chronic obstructive pulmonary disease, unspecified; Z99.81 Dependence on supplemental oxygen; Z87.891 Personal history of nicotine dependence; E11.22 Type 2 diabetes mellitus with diabetic chronic kidney disease; N18.3 Chronic kidney disease, stage 3 (moderate); Z79.84 Long term (current) use of oral hypoglycemic drugs
CPT/HCPCS: 36415; 36600; 51702; 70450; 71045; 74176; 80048; 80053; 81001; 82272; 82803; 82947; 83036; 84443; 85025; 85027; 85610; 85730; 86850; 86900; 86901; 93005; 93010; 94660; 94762; 96365; 96366; 96375; 99285-25; A9270; C9113; J2310; J2765; J7030; J7042

== ENCOUNTER → 2019-04-09 | Outpatient (CLI) | payer OTHER | END | disposition home or self-care (01) | LOC: LAB SHORT 10:41 → PLD 10:41 | DX: D48.5 Neoplasm of uncertain behavior of skin (principal) | CPT/HCPCS: 88305 ==

== ENCOUNTER → 2019-04-24 | Outpatient (CLI) | payer OTHER | END | disposition home or self-care (01) | LOC: LAB SHORT 08:13 → PLD 08:13 | DX: C44.619 Basal cell carcinoma of skin of left upper limb, including shoulder (principal) | CPT/HCPCS: 88305 ==

== ENCOUNTER 2019-07-15 05:54 | Emergency (ER) | payer OTHER ==
[~2019-07-15] VITALS: Ht 170.2 cm; Wt 155.6 kg
[2019-07-15 06:30] LABS: BASOPHILS ABSOLUTE AUTO 0.02 K/mm3 (0.00-0.23); BASOPHILS PERCENT AUTO 0 % (0-2); EOSINOPHILS ABSOLUTE AUTO 0.08 K/mm3 (0.00-0.68); EOSINOPHILS PERCENT AUTO 2 % (0-6); Hemoglobin 9.9 g/dL (11.5-16.0); IMMATURE GRAN ABSOLUTE AUTO 0.02 K/mm3 (0.00-0.10); IMMATURE GRAN PERCENT AUTO 0 % (0-1); LYMPHOCYTES ABSOLUTE AUTO 1.06 K/mm3 (0.84-5.20); LYMPHOCYTES PERCENT AUTO 23 % (21-46); MONOCYTES ABSOLUTE AUTO 0.43 K/mm3 (0.16-1.47); MONOCYTES PERCENT AUTO 9 % (4-13); Mean Corpuscular HGB 29.2 pg (26.0-34.0); Mean Corpuscular Volume 97 fL (80-100); Mean Platelet Volume 9.9 fL (9.1-12.4); NEUTROPHILS ABSOLUTE AUTO 3.08 K/mm3 (1.96-9.15); NEUTROPHILS PERCENT AUTO 66 % (41-73); Platelet Count 173 K/mm3 (150-400); RDW Coefficient Variation 15.5 % (11.7-14.2); RDW Standard Deviation 54.9 fL (35.1-46.3); Red Blood Cell Count 3.39 M/mm3 (3.80-5.20); White Blood Cell Count 4.69 K/mm3 (4.00-11.30)
[2019-07-15 06:43] LABS: Alanine Aminotransfer (ALT/SGP 25 U/L (12-78); Albumin, Blood 3.4 g/dL (3.4-5.0); Albumin/Globulin Ratio 0.9 (0.8-1.8); Alk Phos 78 U/L (50-136); Anion Gap 6 mmol/L (6-16); Aspartate Aminotrans (AST/SGOT 30 U/L (12-37); Bilirubin, Total 0.5 mg/dL (0.1-1.0); Blood Urea Nitrogen 12 mg/dL (8-24); Bun/Creatinine Ratio 21.8 (12.0-20.0); CO2, Blood 30 mmol/L (21-32); Calcium, Blood 9.2 mg/dL (8.5-10.1); Chloride, Blood 103 mmol/L (98-108); Creatinine, Blood 0.55 mg/dL (0.40-1.00); Globulin, Blood 3.8 g/dL (2.2-4.0); Glomerular Filtration Rate >60 (60-); Glucose, Blood 143 mg/dL (70-99); Sodium, Blood 139 mmol/L (136-145); Total Protein, Blood 7.2 g/dL (6.4-8.2); Troponin I <0.015 ng/mL (0.000-0.040)
[2019-07-15] MEDS ORDERED: Zithromax250 MG PO (07:44)
[2019-07-15] MEDS ORDERED: Augmentin 875-1 EACH PO (07:44)
[2019-07-15] MEDS ORDERED: PRED20 PO (07:44)
== END 2019-07-15 10:15 | disposition home or self-care (01) ==
LOC: ER 05:54
PROVIDERS: Emergency Medicine
DX: J44.0 Chronic obstructive pulmonary disease with (acute) lower respiratory infection (principal); J18.9 Pneumonia, unspecified organism; J44.1 Chronic obstructive pulmonary disease with (acute) exacerbation; I11.0 Hypertensive heart disease with heart failure; I50.30 Unspecified diastolic (congestive) heart failure; E11.9 Type 2 diabetes mellitus without complications; J44.9 Chronic obstructive pulmonary disease, unspecified; F32.9 Major depressive disorder, single episode, unspecified; E78.00 Pure hypercholesterolemia, unspecified; G47.30 Sleep apnea, unspecified; Z87.891 Personal history of nicotine dependence
CPT/HCPCS: 71045; 80053; 83880; 84484; 85025; 93005; 93010; 96374; 96375; 99284-25; J0456; J0696; J2930; J7050

== ENCOUNTER 2019-07-17 08:37 | Inpatient (IN) | payer OTHER ==
[~2019-07-17] VITALS: Ht 170.2 cm; Wt 145.1 kg
[~2019-07-17 08:37] MED LIST changes: +Augmentin 875-1 EACH PO
[2019-07-17 09:15] LABS: BASOPHILS ABSOLUTE AUTO 0.02 K/mm3 (0.00-0.23); BASOPHILS PERCENT AUTO 0 % (0-2); EOSINOPHILS ABSOLUTE AUTO 0.02 K/mm3 (0.00-0.68); EOSINOPHILS PERCENT AUTO 0 % (0-6); Hematocrit 34.9 % (33.0-51.0); Hemoglobin 10.4 g/dL (11.5-16.0); IMMATURE GRAN ABSOLUTE AUTO 0.11 K/mm3 (0.00-0.10); IMMATURE GRAN PERCENT AUTO 2 % (0-1); LYMPHOCYTES PERCENT AUTO 11 % (21-46); MONOCYTES ABSOLUTE AUTO 0.41 K/mm3 (0.16-1.47); MONOCYTES PERCENT AUTO 7 % (4-13); Mean Corpuscular HGB 29.2 pg (26.0-34.0); Mean Corpuscular HGB Conc 29.8 g/dL (31.5-36.5); Mean Corpuscular Volume 98 fL (80-100); Mean Platelet Volume 9.6 fL (9.1-12.4); NEUTROPHILS ABSOLUTE AUTO 5.05 K/mm3 (1.96-9.15); NEUTROPHILS PERCENT AUTO 80 % (41-73); Platelet Count 204 K/mm3 (150-400); RDW Coefficient Variation 15.5 % (11.7-14.2); RDW Standard Deviation 55.1 fL (35.1-46.3); Red Blood Cell Count 3.56 M/mm3 (3.80-5.20); White Blood Cell Count 6.31 K/mm3 (4.00-11.30)
[2019-07-17 09:31] LABS: Alanine Aminotransfer (ALT/SGP 34 U/L (12-78); Albumin, Blood 3.6 g/dL (3.4-5.0); Albumin/Globulin Ratio 0.9 (0.8-1.8); Alk Phos 80 U/L (50-136); Anion Gap 5 mmol/L (6-16); Aspartate Aminotrans (AST/SGOT 41 U/L (12-37); Bilirubin, Total 0.4 mg/dL (0.1-1.0); Blood Urea Nitrogen 19 mg/dL (8-24); Bun/Creatinine Ratio 37.3 (12.0-20.0); CO2, Blood 32 mmol/L (21-32); Calcium, Blood 9.7 mg/dL (8.5-10.1); Chloride, Blood 101 mmol/L (98-108); Creatinine, Blood 0.51 mg/dL (0.40-1.00); Glomerular Filtration Rate >60 (60-); Glucose, Blood 162 mg/dL (70-99); Potassium, Blood 3.7 mmol/L (3.5-5.5); Sodium, Blood 138 mmol/L (136-145); Total Protein, Blood 7.6 g/dL (6.4-8.2)
[2019-07-17 09:53] LABS: PCO2 Arterial 60.2 mmHg (35-45); PO2 Arterial 107 mmHg (80-100); pH Blood Arterial 7.35 (7.35-7.45)
[2019-07-17] MEDS ORDERED: DULOXETINE HCL60 M1 PO (11:48)
[2019-07-17] MEDS ORDERED: OXYC10TA19 PO (11:49)
[2019-07-17] MEDS ORDERED: METFORMIN HCL500 M3 PO (11:50)
[2019-07-17] MEDS ORDERED: SYNTHROID150 MC2 PO (11:50)
[2019-07-17] MEDS ORDERED: VITAMIN D350 MCG PO (11:50)
[2019-07-17] MEDS ORDERED: NEURONTIN300 MG PO (11:51)
[2019-07-17] MEDS ORDERED: CARVEDILOL6.25 MG PO (11:51)
[2019-07-17] MEDS ORDERED: TORS10 PO (11:53)
[2019-07-17 12:08] LABS: Source, Urine Clean Catch
[2019-07-17 12:13] LABS: Bilirubin, Urine Neg (Neg); Blood, Urine 1+ (Neg); Glucose Qualitative, Urine Neg (Neg); Ketones, Urine Neg (Neg); Leukocyte Esterase, Urine Neg (Neg); Nitrite, Urine Neg (Neg); Protein, Urine Neg (Neg); Urobilinogen, Urine NORM (Normal)
[2019-07-17 12:31] LABS: Appearance, Urine Clear (Clear); Bacteria Not Seen /hpf; Color, Urine Yellow (P-Yellow); Red Blood Cells, Urine 0-2 /hpf (0-2); Squamous Epithelial Cells Rare /hpf (Few); White Blood Cells, Urine Not Seen /hpf (0-5); Yeast/Fungi Urine Not Seen /hpf
[2019-07-17 13:41] LABS: Adenovirus Not Detected (NOT DETECT); Bordetella pertussis Not Detected (NOT DETECT); Chlamydophila pneumoniae Not Detected (NOT DETECT); Coronavirus 229E Not Detected (NOT DETECT); Coronavirus HKU1 Not Detected (NOT DETECT); Coronavirus NL63 Not Detected (NOT DETECT); Coronavirus OC43 Not Detected (NOT DETECT); Human Metapneumovirus Detected (NOT DETECT); Human Rhinovirus/Enterovirus Not Detected (NOT DETECT); Influenza A/2009-H1 Not Detected (NOT DETECT); Influenza A/H1 Not Detected (NOT DETECT); Influenza A/H3 Not Detected (NOT DETECT); Influenza B Not Detected (NOT DETECT); Mycoplasma pneumoniae Not Detected (NOT DETECT); Parainfluenza Virus 1 Not Detected (NOT DETECT); Parainfluenza Virus 2 Not Detected (NOT DETECT); Parainfluenza Virus 3 Not Detected (NOT DETECT); Parainfluenza Virus 4 Not Detected (NOT DETECT); Respiratory Syncytial Virus Not Detected (NOT DETECT)
--- NOTE | 2019-07-17 14:50 | NUR ---
ARRIVAL NOTE: PT ARRIVED VIA ED GURNEY. PT CURRENTLY PARALYZED WITH NIMBEX @ 3MG/KG/MIN. DECREASED TO 1MG/KG/MIN TRAIN OF FOUR 0/4. PT NOT CURRENTLY IN RESTRAINTS, SHE IS PARALYZED, AND PROPOFOL @ 60MG/KG/HR. BIS MONITOR SET UP AND PT 52-[address]. [address] CHACON AND SHE WILL ORDER FENTANYL. LUNGS WITH SCATTERED WHEEZING T/O AND RALES HEARD IN THE LT/RT UPPER LOBES/RML, AND DIMINISHED IN THE BILATERAL BASES. SATS- 96-98% RANGE ON VENT SETTTINGS: AC-26, TV-500, P-8, WM67-489%. HR REGULAR, ST 100-110'S RANGE. NS @ 75ML/HR THROUGH PIV. ABD OBESE/VERY FIRM/HYPOACTIVE BT'S X 4 QAUDS. NO BM YET THIS SHIFT. PT CONSTANTLY PASSING FLATUS AND PART OF ABD DISTENTION IS R/T AIR FROM MULTIPLE INTUBATIONS ATTEMPTS IN THE ER. CENTENO CATH DRAINING BRY COLORED URINE TO GRAVITY. -FULL CODE -AIRBORNE PRECAUTIONS FOR R/O COVID. SPECIMEN TO BE SENT TO LAB. -SWAB TO R/O STREP A/B
[2019-07-17 16:51] LABS: PCO2 Arterial 82.1 mmHg (35-45); PO2 Arterial 103 mmHg (80-100); pH Blood Arterial 7.17 (7.35-7.45)
--- NOTE | 2019-07-17 17:28 | NUR ---
Initial spiritual care note: Met with pt's dtr and sister in ICU waiting area. Dtr tearful and anxious. Provided calm presence and assurance of care to good effect. [employer] will remain available.
--- NOTE | 2019-07-17 18:07 | NUR ---
SHIFT SUMMARY: STREP TESTING SENT TO LAB WELL COVID-19 R/O SWAB. PT WILL REMAIN IN AIRBORNE PRECAUTIONS AT THIS TIME. NIMBEX REMAINS AT 1MCG/KG/MIN. PROPOFOL @ 60MCG/KG/HR. PT OUT OF RESTRAINTS SHE IS ON NIMBEX. VENT SETTINGS CHANGED AFTER MOST RECENT ABG TO AC-26, PC- 30, P-8, FI02-60%. PT SP02-99% AT THIS TIME. WILL RECHECK ABG @1999. POWERGLIDE PLACED IN THE RT UA FOR ADD'L IV ACCESS. ABX CHANGED FOR APPROPRIATE COVERAGE AND TO AVOID POTENTIAL ALLERGY. ABD REMAINS VERY DISTENTED. OGT CURRENTLY CLAMPED AFTER HAVING IT HOOKED UP TO SX FOR A SHORT PERIOD. CLAMPED AFTER GIVEN MEDICATIONS PER TUBE. CENTENO CATH WTIH 400ML OUT. RT/LT UPPER ARMS REMAIN EYTHEMATOUS SINCE ARRIVAL, HOWEVER, THEY ARE IMPROVED AND PT BEING GIVEN BENADRYL FOR THIS.
--- NOTE | 2019-07-17 19:31 | NUR ---
REPORTED OFF TO MARILYN DURAN WHOM IS ASSUMING CARE OF THIS PT.
[2019-07-17 20:03] LABS: PCO2 Arterial 41.8 mmHg (35-45); PO2 Arterial 84.2 mmHg (80-100); pH Blood Arterial 7.43 (7.35-7.45)
--- NOTE | 2019-07-17 21:21 | NUR ---
ASSUMPTION OF CARE ASSUMED CARE OF PT @ 1900, PT INTUBATED, SEDATED, AND PARALYZED, PROPOFOL @ 60 AND NIMBEX @ 1 (SEE FLOWSHEET), TOF 4/4, PT TOLERATING VENT, BIS MONITOR SHOWS 58-70'S, SWB APPLIED TO PREVENT SELF EXTUBATION. VENT SET TO PC RR 26 FIO2 40% AND PEEP 8. PT OPENS EYES TO NAME, DOES NOT FOLLOW COMMANDS OR MOVE EXTREMETIES, UNEQUAL PUPILS NOTED. MONITOR SHOWS SINUS RHYTHM, HR 70'S-90'S, BP STABLE. OG TUBE IN PLACE TO LOW INTERMITTENT SUCTION, GREEN BILE NOTED. CENTENO IN PLACE DRAINING YELLOW URINE.
--- NOTE | 2019-07-18 00:16 | NUR ---
BEDSIDE REPORT TO JAIME RN, DURING REPOSITIONING PT SATURATIONS DECREASED TO 60'S, VENT SHOWING LOW TIDAL VOLUMES<100, LUNG SOUNDS VERY DIMINISHED BILAT, MANUAL VENTILATION BEGAN WITH INCREASE OF O2 SATURATIONS TO 100%. CALL PLACED TO DR FRIAS, STAT CHEST XRAY ORDERED.
--- NOTE | 2019-07-18 00:30 | NUR ---
CALL PLACED TO DR CHACON, UPDATED ON PTS STATUS, CHEST XRAY COMPLETE, ORDER TO CHANGE VENT RR TO 22.
--- NOTE | 2019-07-18 03:29 | NUR ---
REPORT GIVEN TO JAIME SANDERS
[2019-07-18 03:47] LABS: Base Excess Venous 3.2 mmol/L; Bicarbonate Venous 26.5 mmol/L (24.0-30.0); PCO2 Venous 53.1 mmHg (38-42); PO2 Venous 56.2 mmHg (38-42); pH Blood Venous 7.34 (7.34-7.37)
--- NOTE | 2019-07-18 04:06 | NUR ---
ASSUMED CARE OF PT AT 0330, RECEVIED REPORT BY MARILYN GONZALES.
[2019-07-18 04:07] LABS: BASOPHILS ABSOLUTE AUTO 0.01 K/mm3 (0.00-0.23); BASOPHILS PERCENT AUTO 0 % (0-2); EOSINOPHILS PERCENT AUTO 0 % (0-6); Hematocrit 31.4 % (33.0-51.0); Hemoglobin 9.2 g/dL (11.5-16.0); IMMATURE GRAN ABSOLUTE AUTO 0.11 K/mm3 (0.00-0.10); IMMATURE GRAN PERCENT AUTO 2 % (0-1); LYMPHOCYTES ABSOLUTE AUTO 0.52 K/mm3 (0.84-5.20); LYMPHOCYTES PERCENT AUTO 11 % (21-46); MONOCYTES PERCENT AUTO 4 % (4-13); Mean Corpuscular HGB 28.8 pg (26.0-34.0); Mean Corpuscular HGB Conc 29.3 g/dL (31.5-36.5); Mean Corpuscular Volume 98 fL (80-100); Mean Platelet Volume 9.9 fL (9.1-12.4); NEUTROPHILS ABSOLUTE AUTO 4.03 K/mm3 (1.96-9.15); NEUTROPHILS PERCENT AUTO 83 % (41-73); Platelet Count 218 K/mm3 (150-400); RDW Coefficient Variation 15.6 % (11.7-14.2); RDW Standard Deviation 56.4 fL (35.1-46.3); White Blood Cell Count 4.87 K/mm3 (4.00-11.30)
[2019-07-18 04:21] LABS: Alanine Aminotransfer (ALT/SGP 41 U/L (12-78); Albumin, Blood 3.2 g/dL (3.4-5.0); Albumin/Globulin Ratio 0.9 (0.8-1.8); Alk Phos 74 U/L (50-136); Anion Gap 7 mmol/L (6-16); Aspartate Aminotrans (AST/SGOT 48 U/L (12-37); Bilirubin, Total 0.3 mg/dL (0.1-1.0); Blood Urea Nitrogen 24 mg/dL (8-24); Bun/Creatinine Ratio 30.8 (12.0-20.0); CO2, Blood 29 mmol/L (21-32); Calcium, Blood 8.4 mg/dL (8.5-10.1); Chloride, Blood 103 mmol/L (98-108); Creatinine, Blood 0.78 mg/dL (0.40-1.00); Globulin, Blood 3.5 g/dL (2.2-4.0); Glomerular Filtration Rate >60 (60-); Glucose, Blood 320 mg/dL (70-99); Magnesium, Blood 1.9 mg/dL (1.6-2.4); Potassium, Blood 4.2 mmol/L (3.5-5.5); Sodium, Blood 139 mmol/L (136-145); Total Protein, Blood 6.7 g/dL (6.4-8.2)
--- NOTE | 2019-07-18 06:46 | NUR ---
SHIFT SUMMARY: PT'S LEFT FOREARM IV INFILRATED, WHERE SEDATION WAS INFUSING. PROPOFOL WHICHED TO DIFFERENT SITE. PT VENT SETTINGS AC22/400/8/45%, SPO2 93%. PROPOFOL CURRENTLY @ 60MCG/KG/MIN, NIMBEX @ 2MCG/KG/MIN , BIS MONITOR READING 40. PT IN SIT WITH HR 105. PT DID EXPERIENCE ELEVATED BP THIS SHIFT, CAME DOWN AFTER PROPOFOL WAS SWITCHED SITES. OG HOOKED TO INTERMIT SUCTION DRAINING GREEN BILE. CENTENO DRAINING BRY CLOUDY URINE. PT'S TEMP HAS DECREASED TO 98.6, FROM 100.0, BED AT LOWEST LEVEL. SWR IN PLACE. REPORT GIVEN TO ONCOMING SHIFT
--- NOTE | 2019-07-18 07:37 | NUR ---
ASSUMED CARE REPORT FROM MARILYN ANDRADE. MORBIDLY OBESE FEMALE IN ICU 11 INTUBATED AND PARALIZED. 6.O ETT 25 CM JOSEPHINE. NIMBEX GTT AT 1 MCG/KG/MIN, TITRATED TO 2MCG/KG/MIN. PROPOFOL FOR COMFORT AT 60 MCG/KG/MIN. BIZ MONITOR SHOWS 54. PATIENT TURNED WITH CALEB LIFT WITH ASSISTANCE OF CIGAR HEAD PERFORATOR AND RT. NO DESATURATION DURING TURN. LS COARSE W/INSP-EXP WHEEZES PER RT. VENTILATOR AC 22 Vt 400 PEEP 8 AND FIO2 45% FOR BIOX 93% CENTENO CATHETER IN PLACE WITH CLEAR YELLOW URINE NOTED. CENTENO TEMP READS 98.4 HR NSR 93 AND BP 115/54(73). OGT WAS UNSECURED AND PULLED OUT. RT RESECURED IT, BUT IT WAS COILED IN HER MOUTH. ADVANCED FOLLOWING THE ETT UNTIL NO LONGER COILED WITH IMMEDIATE RETURN OF BILE IN TUBE.
--- NOTE | 2019-07-18 07:52 | NUR ---
PATIENT IS IN DROPLET ISOLATION FOR R/O COVID-19
--- NOTE | 2019-07-18 08:05 | NUR ---
NIMBEX TO 1.5 FOR BIZ 38
--- NOTE | 2019-07-18 08:24 | NUR ---
BIZ INCREASED DURING ORAL CARE. FENTANYL 100 MCG IV GIVEN
[2019-07-18] MEDS ORDERED: TOPI100 PO (11:49)
--- NOTE | 2019-07-18 19:05 | NUR ---
REPORT GIVEN TO MARILYN GONZALES
--- NOTE | 2019-07-18 22:00 | NUR ---
ASSUMPTION OF CARE ASSUMED CARE OF PT @ 1900, PT INTUBATED, SEDATED, AND PARALYZED, NIMBEX @ 1 AND PROPOFOL @ 60 (SEE FLOWSHEET FOR TITRATIONS), VENT SET TO AC 22/400/8/40%. MONITOR SHOWS SINUS RHYTHM, HR 90-115, HYPERTENSIVE, BIS MONITOR 70-80 FENTANYL PROVIDED FOR SEDATION ADJUNCT/PAIN, BP REMAINED HIGH. RT TO ROOM, ETT @24CM, ADVANCED 2CM TO 26.0, BP IMPROVED BREIFLY. DISCUSSED WITH DR DONNELLY, NEW ORDER FOR COUREG. OG IN PLACE TO LOW INTERMITTENT SUCTION, GREEN BILE NOTED, OG CLAMPED POST MEDICATION ADMINISTRATION. CENTENO IN PLACE DRAINING CLEAR YELLOW URINE.
[2019-07-19 04:59] LABS: BASOPHILS ABSOLUTE AUTO 0.01 K/mm3 (0.00-0.23); BASOPHILS PERCENT AUTO 0 % (0-2); EOSINOPHILS PERCENT AUTO 0 % (0-6); Hematocrit 31.3 % (33.0-51.0); Hemoglobin 9.3 g/dL (11.5-16.0); IMMATURE GRAN ABSOLUTE AUTO 0.13 K/mm3 (0.00-0.10); IMMATURE GRAN PERCENT AUTO 2 % (0-1); LYMPHOCYTES ABSOLUTE AUTO 0.54 K/mm3 (0.84-5.20); LYMPHOCYTES PERCENT AUTO 10 % (21-46); MONOCYTES ABSOLUTE AUTO 0.23 K/mm3 (0.16-1.47); MONOCYTES PERCENT AUTO 4 % (4-13); Mean Corpuscular HGB 29.2 pg (26.0-34.0); Mean Corpuscular HGB Conc 29.7 g/dL (31.5-36.5); Mean Corpuscular Volume 98 fL (80-100); Mean Platelet Volume 9.5 fL (9.1-12.4); NEUTROPHILS ABSOLUTE AUTO 4.54 K/mm3 (1.96-9.15); NEUTROPHILS PERCENT AUTO 83 % (41-73); NRBC ABSOLUTE 0.03 K/mm3 (0.00-0.02); NRBC Auto 0.6 /100 WBC (0.0-0.2); Platelet Count 215 K/mm3 (150-400); RDW Coefficient Variation 15.8 % (11.7-14.2); RDW Standard Deviation 56.5 fL (35.1-46.3); Red Blood Cell Count 3.19 M/mm3 (3.80-5.20); White Blood Cell Count 5.45 K/mm3 (4.00-11.30)
[2019-07-19 05:18] LABS: Anion Gap 7 mmol/L (6-16); Blood Urea Nitrogen 25 mg/dL (8-24); Bun/Creatinine Ratio 35.6 (12.0-20.0); CO2, Blood 28 mmol/L (21-32); Calcium, Blood 8.6 mg/dL (8.5-10.1); Chloride, Blood 103 mmol/L (98-108); Glomerular Filtration Rate >60 (60-); Glucose, Blood 278 mg/dL (70-99); Potassium, Blood 4.1 mmol/L (3.5-5.5); Sodium, Blood 138 mmol/L (136-145)
[2019-07-19 05:26] LABS: PCO2 Arterial 47.2 mmHg (35-45); PO2 Arterial 85.3 mmHg (80-100)
--- NOTE | 2019-07-19 07:12 | NUR ---
SHIFT SUMMARY PT REMIANS INTUBATED, SEDATED AND PARALYZED, PROPOFOL TITRATED TO MAINTAIN BIS MONITOR 40-60, SEE FLOWSHEET. MONITOR SHOWS SINUS RHYTHM, HR DECREASED TO 60'S BP STABALIZED BUT PT HYPERTENSIVE THROUGH MOST OF SHIFT. OG REMAINS IN PLACE DRAINING GREEN BILE. CENTENO IN PLACE DRAINING DARK YELLOW URINE. REPORT GIVEN TO BRENNA SANDERS.
--- NOTE | 2019-07-19 07:19 | NUR ---
ASSUMED CARE REPORT FROM MARILYN GONZALES. CONTINUES IN ISOLATION FOR R/O COVID-19. DROPLET WHEN NOT RECEIVING BT. PARALYZED ON NIMBEX, SEDATED ON PROPOFOL. BIZ AT 39
--- NOTE | 2019-07-19 09:00 | NUR ---
PATIENT BIZ TO 87 DURING DEEP SUBGLOTTAL SX. BELLY MOVED. NIMBEX TO 2. PROPOFOL TO 60
[2019-07-19 16:36] LABS: Vancomycin, Trough 16.7 ug/mL (5.0-10.0)
--- NOTE | 2019-07-19 19:00 | NUR ---
ASSUMED CARE ASSUMED CARE OF PATIENT. REMAINS INTUBATED- 6.0 ETT, 26 @ LIP. VENT SETTINGS: AC 22, TV 400, PEEP 8, FIO2 40%. RR 22. SEDATED WITH PROPOFOL @ 60MCG/KG/MIN. BIS 41. PARALYZED WITH NIMBEX GTT @ 2MCG/KG/MIN. TRAIN OF FOUR 0/4 AT THIS TIME. MONITOR SHOWS SR, RATE 70s. HYPERTENSION NOTED- BP 191/80. TEMP 99.1 VIA CENTENO TEMP PROBE. OG CLAMPED. CENTENO PATENT AND DRAINING YELLOW URINE. REMAINS IN ISOLATION FOR R/O COVID-19. SEE SHIFT ASSESSMENT FOR FULL ASSESSMENT.
--- NOTE | 2019-07-19 19:41 | NUR ---
REPORT GIVEN TO MARILYN COTA
--- NOTE | 2019-07-19 23:30 | NUR ---
HYPERTENSION SBP 190s. DR. DONNELLY NOTIFIED AND NEW ORDERS RECEIVED.
--- NOTE | 2019-07-20 03:41 | NUR ---
LEAK TEST CUFF DEFLATED, POSITIVE FOR LEAK. ONLY 3 ML REQUIRED TO ADD TO TRAVEL CLERK BALLOON BEFORE LEAK WAS NO LONGER PRESENT.
[2019-07-20 03:55] LABS: PCO2 Arterial 48.7 mmHg (35-45); PO2 Arterial 123 mmHg (80-100); pH Blood Arterial 7.39 (7.35-7.45)
[2019-07-20 04:21] LABS: BASOPHILS ABSOLUTE AUTO 0.01 K/mm3 (0.00-0.23); BASOPHILS PERCENT AUTO 0 % (0-2); EOSINOPHILS PERCENT AUTO 0 % (0-6); Hematocrit 32.8 % (33.0-51.0); Hemoglobin 9.9 g/dL (11.5-16.0); IMMATURE GRAN ABSOLUTE AUTO 0.22 K/mm3 (0.00-0.10); IMMATURE GRAN PERCENT AUTO 4 % (0-1); LYMPHOCYTES ABSOLUTE AUTO 0.85 K/mm3 (0.84-5.20); LYMPHOCYTES PERCENT AUTO 14 % (21-46); MONOCYTES ABSOLUTE AUTO 0.22 K/mm3 (0.16-1.47); MONOCYTES PERCENT AUTO 4 % (4-13); Mean Corpuscular HGB 29.3 pg (26.0-34.0); Mean Corpuscular HGB Conc 30.2 g/dL (31.5-36.5); Mean Corpuscular Volume 97 fL (80-100); Mean Platelet Volume 9.6 fL (9.1-12.4); NEUTROPHILS ABSOLUTE AUTO 4.64 K/mm3 (1.96-9.15); NEUTROPHILS PERCENT AUTO 78 % (41-73); NRBC ABSOLUTE 0.02 K/mm3 (0.00-0.02); NRBC Auto 0.3 /100 WBC (0.0-0.2); Platelet Count 201 K/mm3 (150-400); RDW Coefficient Variation 15.8 % (11.7-14.2); RDW Standard Deviation 55.8 fL (35.1-46.3); Red Blood Cell Count 3.38 M/mm3 (3.80-5.20); White Blood Cell Count 5.94 K/mm3 (4.00-11.30)
[2019-07-20 04:45] LABS: Anion Gap 6 mmol/L (6-16); Blood Urea Nitrogen 32 mg/dL (8-24); Bun/Creatinine Ratio 45.6 (12.0-20.0); CO2, Blood 29 mmol/L (21-32); Calcium, Blood 8.3 mg/dL (8.5-10.1); Chloride, Blood 104 mmol/L (98-108); Glomerular Filtration Rate >60 (60-); Glucose, Blood 311 mg/dL (70-99); Potassium, Blood 3.9 mmol/L (3.5-5.5); Sodium, Blood 139 mmol/L (136-145)
--- NOTE | 2019-07-20 06:24 | NUR ---
SHIFT SUMMARY NO ACUTE CHANGES DURING NOC. REMAINS INTUBATED- AC 22, TV 400, PEEP 8, FIO2 BETWEEN 40-55%. FIO2 NOW AT 45%. REMAINS SEDATED WITH PROPOFOL AT 50MCG/KG/MIN. BIS BETWEEN 30-50 T/O NOC. REMAINS ON NIMBEX GTT- NOW AT 1.5MCG/KG/MIN. TRAIN OF FOUR 1/4 THIS AM. OG CLAMPED. CENTENO PATENT AND DRAINING YELLOW URINE. GOOD RESPONSE TO LASIX THAT WAS GIVEN AT BEGINNING OF SHIFT. INTERMITTENT HYPERTENSION NOTED. NORVASC 10MG PO GIVEN X 1 DOSE. MEDICATED WITH FENTANYL 100MCG IV X 3 DOSES DURING SHIFT AN ADJUNCT TO SEDATION. REMAINS IN ISOLATION FOR R/O COVID-19. WILL REPORT TO DAY SHIFT RN WHEN AVAILABLE.
[2019-07-20 15:32] LABS: Vancomycin, Trough 19.9 ug/mL (5.0-10.0)
--- NOTE | 2019-07-20 19:50 | NUR ---
NOTIFIED DAUGHTER OF NEGATIVE COVID 19 RESULT. TRIED TO STOP NIMBEX, BUT PEAK PRESSURES HIGH WHEN NOT PARALYZED. HAVE TITRATED BETWEEN 0.5 AND 1 FOR EASE OF VENTILATION. PROPOFOL AT 60 MCG/KG/MIN. TF STARTED AT 30 ML/HR. REPORT GIVEN TO MARILYN GONZALES
--- NOTE | 2019-07-20 22:00 | NUR ---
ASSUMPTION OF CARE ASSUMED CARE OF PT @ 1900, PT INTUBATED, SEDATED AND PARALYZED. PT DOES NOT MOVE EXTREMETIES BUT IS ABLE TO OPEN HER EYES, OPENS EYES TO VERBAL STIMULI, VENT SET TO AC 22/400/5/40%, LS VERY COARSE T/O. MONITOR SHOWS SINUS RHYTHM, HR 60'S, PT HYPERTENSIVE. PROPOFOL INF @ 60, NIMBEX @ 1. OGT INF TF @ 30ml/hr. CENTENO PRESENT DRAINING YELLOW URINE.
--- NOTE | 2019-07-21 01:50 | NUR ---
DISCUSSED PTS BP WITH DR DONNELLY, CONTINUE TO USE PRN FENTANYL AND ATIVAN ADJUNCT TO SEDATION PT IS PARALYZED ON NIMBEX.
[2019-07-21 04:58] LABS: PCO2 Arterial 49.6 mmHg (35-45); PO2 Arterial 79.3 mmHg (80-100); pH Blood Arterial 7.38 (7.35-7.45)
[2019-07-21 05:48] LABS: Hematocrit 33.7 % (33.0-51.0); Hemoglobin 10.2 g/dL (11.5-16.0); Mean Corpuscular HGB 29.6 pg (26.0-34.0); Mean Corpuscular HGB Conc 30.3 g/dL (31.5-36.5); Mean Corpuscular Volume 98 fL (80-100); Mean Platelet Volume 9.6 fL (9.1-12.4); NRBC ABSOLUTE 0.04 K/mm3 (0.00-0.02); NRBC Auto 0.6 /100 WBC (0.0-0.2); Platelet Count 199 K/mm3 (150-400); RDW Coefficient Variation 15.9 % (11.7-14.2); RDW Standard Deviation 56.8 fL (35.1-46.3); Red Blood Cell Count 3.45 M/mm3 (3.80-5.20); White Blood Cell Count 6.42 K/mm3 (4.00-11.30)
[2019-07-21 06:07] LABS: Anion Gap 4 mmol/L (6-16); Blood Urea Nitrogen 37 mg/dL (8-24); Bun/Creatinine Ratio 64.9 (12.0-20.0); CO2, Blood 29 mmol/L (21-32); Calcium, Blood 8.4 mg/dL (8.5-10.1); Chloride, Blood 107 mmol/L (98-108); Creatinine, Blood 0.57 mg/dL (0.40-1.00); Glomerular Filtration Rate >60 (60-); Glucose, Blood 327 mg/dL (70-99); Magnesium, Blood 2.7 mg/dL (1.6-2.4); Phosphorus, Blood 2.9 mg/dL (2.5-4.9); Potassium, Blood 3.7 mmol/L (3.5-5.5); Sodium, Blood 140 mmol/L (136-145)
[2019-07-21 06:10] LABS: BAND PERCENT MAN 1 % (0-8); BASOPHILS PERCENT MAN 0 % (0-2); EOSINOPHILS PERCENT MAN 0 % (0-6); LYMPHOCYTES ABSOLUTE MAN 1.21 K/mm3 (0.84-5.20); LYMPHOCYTES PERCENT MAN 19 % (21-46); MONOCYTES ABSOLUTE MAN 0.12 K/mm3 (0.16-1.47); MONOCYTES PERCENT MAN 2 % (4-13); MYELOCYTE ABSOLUTE MAN 0.19 K/mm3 (0.00-0.00); MYELOCYTE PERCENT MAN 3 % (0-0); NEUTROPHILS ABSOLUTE MAN 4.87 K/mm3 (1.96-9.15); SEG NEUTROPHILS PERCENT MAN 75 % (41-73); TOTAL CELLS COUNTED 100
--- NOTE | 2019-07-21 07:00 | NUR ---
REC'D BEDSIDE REPORT FROM MARILYN CHÁVEZ AND AM NOW ASSUMING CARE OF THIS PT.
--- NOTE | 2019-07-21 07:30 | NUR ---
SHIFT SUMMARY NO ACUTE CHANGES THIS SHIFT. PT REMAINS INTUBATED, SEDATED AND PARALYZED, OPENS EYES TO VERBAL STIMULI, ABSENT OF MOVEMENT IN EXTREMETIES. VENT SET TO AC 22/400/5/40%. MONITOR SHOWS SINUS RHYTHM, HR 60'S, HYPERTENSIVE, PRN PAIN, ANXIETY, AND BP MEDS PROVIDED. OGT IN PLACE, INF TF @ 30ml/hr. CENTENO IN PLACE DRAINING DARK YELLOW URINE. REPORT GIVENT TO SHAUN SANDERS.
--- NOTE | 2019-07-21 13:33 | NUR ---
CALLED DR LACY RE: CONTINUED ELEVATED BP DESPITE ANTI-HYPERTENSIVES, HYDRAZINE IVP AND FENTANYL FOR ADJUNCT SEDATION.
--- NOTE | 2019-07-21 15:30 | NUR ---
PT. HAD POSITIVE LEAK TEST THIS AM.
--- NOTE | 2019-07-21 16:44 | NUR ---
SHIFT SUMMARY: PT REMAINS INTUBATED AND SEDATED WITH PROPOFOL @ 60MCG/KG/HR AND USING FENTANYL FOR ADJUNCT THERAPY. USING NIMBEX, PT DOES NOT TOLERATE VENT AND PT WAS SAID TO HAVE "BRONCHOSPASMS" WITHOUT IT. DISCUSSED THIS WITH DR CORDOVA, AND WILL ATTEMPT USE PRECEDEX AND WEAN OFF NIMBEX. PT REMAINS IN BILATERAL WRIST RESTRAINTS. NO UE/LE MOVEMENT, HOWEVER, AT TIMES PT WILL OPEN EYES SLIGHTY. PT DOES NOT RESPOND TO TRAIN OF FOUR WHEN TESTED, HOWEVER, PT DOES GRIMACE 4/4. NO REFLEXIVE RXN THOUGH. LUNGS ARE CLEAR T/O AND DIMINISHED IN THE BILATERAL BASES. SP02 >90% ON UNCHANGED VENT SETTINGS. AC-22, TV-400, P-5, FI02-40%. HR REGULAR, SR-70-80'S RANGE. NIMBEX REMAINS AT 1MCG/KG/MIN T/O SHIFT. PROPOFOL REMAINS AT 60MCG/KG/HR. ABD OBESE/SLIGHTLY FIRM/HYPO-ACTIVE BT'S DESPITE VHP TUBE FEEDS BEING AT GOAL RATE OF 30ML/HR. RESIDUALS REMAIN LESS THAN 5ML THIS SHIFT. PT PUT OUT LARGE AMT OF CLEAR, YELLOW URINE TO GRAVITY. -FULL CODE -PT R/O FOR COVID -CBG'S Q6H. DISCUSSED LONG ACTING INSULIN.
--- NOTE | 2019-07-21 19:30 | NUR ---
ASSUME CARE: BEDSIDE REPORT RECIEVED FROM LAYA OFF GOING RN. MONITOR INTACT SHOWING SINUS LEO -SINUS RHYTHM. HEART RATE 56-70'S. VENT SETTINGS REMAIN AC 22,TV 400, FIO2 40% PEEP 5. RATE 22, SPO2 94-98% LUNG SOUNDS CLEAR UPPER WITH DISTANT/DECREASED SOUNDS IN THE BASES TUABE FEED INFUSINTG AT GOAL RATE WITH 35 ML RESIDUAL REFED WITH ORAL CARE. MOOD AMT THICK SECREATION SX PER ETT. ABDIOMEN SOFT WITH BOWEL SOUNDS FPUR QUADS. CENTENO PATENT DRAINING BRY URINE. EXTREMITIES ELEVATED ON PILLOWS SECONDARY TO GENERALIZED DEPENDENT EDEMA . CONTINUE TO MONITOR AND REPORT CHANGE IN PATIENT CONDITION.
--- NOTE | 2019-07-21 20:09 | NUR ---
review of plan of care with inside sales account executive. Will follow up with family on updates. pt kps score is 20%
--- NOTE | 2019-07-21 20:15 | NUR ---
FAMILY ON PHONE FOR UPDATE. UPDATE GIVEN
[2019-07-22 05:13] LABS: BASOPHILS ABSOLUTE AUTO 0.02 K/mm3 (0.00-0.23); BASOPHILS PERCENT AUTO 0 % (0-2); EOSINOPHILS PERCENT AUTO 0 % (0-6); Hematocrit 32.9 % (33.0-51.0); Hemoglobin 10.2 g/dL (11.5-16.0); IMMATURE GRAN ABSOLUTE AUTO 0.42 K/mm3 (0.00-0.10); IMMATURE GRAN PERCENT AUTO 6 % (0-1); LYMPHOCYTES ABSOLUTE AUTO 0.79 K/mm3 (0.84-5.20); LYMPHOCYTES PERCENT AUTO 12 % (21-46); MONOCYTES ABSOLUTE AUTO 0.27 K/mm3 (0.16-1.47); MONOCYTES PERCENT AUTO 4 % (4-13); Mean Corpuscular HGB 29.8 pg (26.0-34.0); Mean Corpuscular Volume 96 fL (80-100); Mean Platelet Volume 9.9 fL (9.1-12.4); NEUTROPHILS ABSOLUTE AUTO 5.02 K/mm3 (1.96-9.15); NEUTROPHILS PERCENT AUTO 77 % (41-73); NRBC ABSOLUTE 0.06 K/mm3 (0.00-0.02); NRBC Auto 0.9 /100 WBC (0.0-0.2); Platelet Count 215 K/mm3 (150-400); RDW Coefficient Variation 15.9 % (11.7-14.2); RDW Standard Deviation 55.1 fL (35.1-46.3); Red Blood Cell Count 3.42 M/mm3 (3.80-5.20); White Blood Cell Count 6.52 K/mm3 (4.00-11.30)
[2019-07-22 05:35] LABS: Anion Gap 5 mmol/L (6-16); Blood Urea Nitrogen 39 mg/dL (8-24); CO2, Blood 30 mmol/L (21-32); Calcium, Blood 8.7 mg/dL (8.5-10.1); Chloride, Blood 103 mmol/L (98-108); Creatinine, Blood 0.68 mg/dL (0.40-1.00); Glomerular Filtration Rate >60 (60-); Glucose, Blood 337 mg/dL (70-99); Phosphorus, Blood 3.3 mg/dL (2.5-4.9); Potassium, Blood 4.3 mmol/L (3.5-5.5); Sodium, Blood 138 mmol/L (136-145); Vancomycin, Trough 18.8 ug/mL (5.0-10.0)
[2019-07-22 05:38] LABS: BAND PERCENT MAN 1 % (0-8); BASOPHILS PERCENT MAN 0 % (0-2); EOSINOPHILS PERCENT MAN 0 % (0-6); LYMPHOCYTES ABSOLUTE MAN 0.71 K/mm3 (0.84-5.20); LYMPHOCYTES PERCENT MAN 11 % (21-46); METAMYELOCYTE ABSOLUTE MAN 0.13 K/mm3 (0.00-0.00); METAMYELOCYTE PERCENT MAN 2 % (0-0); MONOCYTES ABSOLUTE MAN 0.06 K/mm3 (0.16-1.47); MONOCYTES PERCENT MAN 1 % (4-13); SEG NEUTROPHILS PERCENT MAN 85 % (41-73); TOTAL CELLS COUNTED 100
--- NOTE | 2019-07-22 07:22 | NUR ---
ASSUMED CARE REPORT FROM MARILYN BOONE. PATIENT CONTINUES INTUBATED AND RESTRAINED. ETT POSITIONAL BETWEEN 24-26 CM JOSEPHINE, DEPENDING ON WHICH WAY SHE IS TURNED. INSP AND EXP WHEEZES.
--- NOTE | 2019-07-22 11:44 | NUR ---
RESIDUAL WAS 200 CC, BUT WAS CLEAR BILE AND DIGESTED TUBE FEED. 400 CC MEDS GRAVITY FED WAS RESIDUAL.
--- NOTE | 2019-07-22 19:15 | NUR ---
REPORT GIVEN TO MARILYN IBRAHIM ([facility]) AND MARILYN COTA.
--- NOTE | 2019-07-22 20:16 | NUR ---
ASSUMED CARE AT 1900. PT IS INTUBATED AND SEDATED. NO FAMILY AT BEDSIDE. I-TRACE PERFORMED, CENTENO PATENT AND DRAINING. VENT SETTINGS AC 22/ TV 400/ PEEP 5/ FIO2 40%. ETT 25 AT LIP.
--- NOTE | 2019-07-22 20:44 | NUR ---
review of pt with nursing. family updated by staff will continue to monitor they want full code at this time.
[2019-07-23 03:49] LABS: BASOPHILS ABSOLUTE AUTO 0.03 K/mm3 (0.00-0.23); BASOPHILS PERCENT AUTO 0 % (0-2); EOSINOPHILS PERCENT AUTO 0 % (0-6); Hematocrit 33.6 % (33.0-51.0); IMMATURE GRAN ABSOLUTE AUTO 0.55 K/mm3 (0.00-0.10); IMMATURE GRAN PERCENT AUTO 7 % (0-1); LYMPHOCYTES ABSOLUTE AUTO 1.11 K/mm3 (0.84-5.20); LYMPHOCYTES PERCENT AUTO 14 % (21-46); MONOCYTES PERCENT AUTO 6 % (4-13); Mean Corpuscular HGB 29.2 pg (26.0-34.0); Mean Corpuscular HGB Conc 29.8 g/dL (31.5-36.5); Mean Corpuscular Volume 98 fL (80-100); Mean Platelet Volume 9.7 fL (9.1-12.4); NEUTROPHILS ABSOLUTE AUTO 5.68 K/mm3 (1.96-9.15); NEUTROPHILS PERCENT AUTO 72 % (41-73); NRBC ABSOLUTE 0.04 K/mm3 (0.00-0.02); NRBC Auto 0.5 /100 WBC (0.0-0.2); Platelet Count 210 K/mm3 (150-400); RDW Coefficient Variation 16.5 % (11.7-14.2); RDW Standard Deviation 57.2 fL (35.1-46.3); Red Blood Cell Count 3.43 M/mm3 (3.80-5.20); White Blood Cell Count 7.87 K/mm3 (4.00-11.30)
[2019-07-23 04:05] LABS: Albumin, Blood 2.9 g/dL (3.4-5.0); Anion Gap 6 mmol/L (6-16); Blood Urea Nitrogen 43 mg/dL (8-24); Bun/Creatinine Ratio 64.4 (12.0-20.0); CO2, Blood 30 mmol/L (21-32); Calcium, Blood 8.4 mg/dL (8.5-10.1); Chloride, Blood 103 mmol/L (98-108); Creatinine, Blood 0.67 mg/dL (0.40-1.00); Glomerular Filtration Rate >60 (60-); Glucose, Blood 318 mg/dL (70-99); Phosphorus, Blood 3.5 mg/dL (2.5-4.9); Potassium, Blood 4.2 mmol/L (3.5-5.5); Sodium, Blood 139 mmol/L (136-145)
[2019-07-23 04:06] LABS: BAND PERCENT MAN 1 % (0-8); BASOPHILS PERCENT MAN 0 % (0-2); EOSINOPHILS PERCENT MAN 0 % (0-6); LYMPHOCYTES ABSOLUTE MAN 0.86 K/mm3 (0.84-5.20); LYMPHOCYTES PERCENT MAN 11 % (21-46); METAMYELOCYTE ABSOLUTE MAN 0.55 K/mm3 (0.00-0.00); METAMYELOCYTE PERCENT MAN 7 % (0-0); MONOCYTES ABSOLUTE MAN 0.07 K/mm3 (0.16-1.47); MONOCYTES PERCENT MAN 1 % (4-13); NEUTROPHILS ABSOLUTE MAN 6.37 K/mm3 (1.96-9.15); SEG NEUTROPHILS PERCENT MAN 80 % (41-73); TOTAL CELLS COUNTED 100
--- NOTE | 2019-07-23 06:28 | NUR ---
PT HAS BEEN STABLE ALL NIGHT. NO SEDATION VACATION/ WEAN PERFORMED. PT OUTPUT WAS GOOD, HOWEVER URINE IS STILL A VERY DEEP BRY. PT EYES OPENED AT 0400 ORAL CARE, BUT DID NOT RESPOND TO COMMANDS. PT RIGHT EYE IS STILL VERY SLUGGISH TO NON RESPONSIVE, WHILE LEFT IS SLUGGISH BUT MORE BRISK. THEY ARE STILL EQUAL, HOWEVER. PT TOLERATING VENT.
--- NOTE | 2019-07-23 07:01 | NUR ---
ASSUMED CARE REPORT FROM MARILYN IBRAHIM ([facility]) AND MARILYN COTA. PT CONTINUES INTUBATED 6.0 ETT 26 CM JOSEPHINE. A/C 22, Vt 400 PEEP 5 FIO2 40% WITH BIOX 93% SEDATED ON PROPOFOL 60 MCG/KG/MIN AND PRECEDEX 0.2 MCG/KG/HR. FEBRILE 100.9 TF AT GOAL 30 ML/HR. INSP AND EXP WHEEZES T/O.
--- NOTE | 2019-07-23 09:13 | NUR ---
REPORT GIVEN TO MARILYN MCKAY. TYLENOL GIVEN FOR TEMP 101.1
--- NOTE | 2019-07-23 09:23 | NUR ---
BEDSIDE REPORT WITH MONIKA SANDERS. ASSUMED PT CARE.
--- NOTE | 2019-07-23 09:25 | NUR ---
PT INTUBATED AND SEDATED, PRECEDEX AND PROPOFOL INFUSING. LUNG SOUNDS COARSE, WHEEZES NOTED. SKIN INTACT AND EDEMATOUS, LINE TO LEFT WRIST WITH MEDS INFUSING WNL, DL POWERGLIDE TO RIGHT AC INTACT AND INFUSING. BOWEL SOUNDS PRESENT, CENTENO NOTED DRAINGING BRY COLORED URINE. TUBE FEEDINGS GOING WELL. NO RESIDUALS.
--- NOTE | 2019-07-23 16:30 | NUR ---
Continue to follow pt with difficult intubation kps score is 20%
--- NOTE | 2019-07-23 17:00 | NUR ---
DR CORDOVA TO ROOM FOR EVAL, PLAN FOR SEDATION VACATION. CHARGE NURSE AWARE.
--- NOTE | 2019-07-23 17:20 | NUR ---
PROPOFOL ON STANDBY FOR SEDATION VACATION. CBG 312, MEDICATED WITH HUMALOG AND OTHER SCHED MEDS.
--- NOTE | 2019-07-23 18:51 | NUR ---
SHIFT SUMMARY ASSUMED CARE OF PT AROUND 0925 THIS AM FROM MONIKA SANDERS PT REMAINS INTUBATED TV 400, PEEP 5, FIO2 40%. TUBE FEEDS AT GOAL OF 30ML/HR. NO RESIDUALS THIS SHIFT. PT JALYN TUBE FEEDS AND MEDS. SKIN INTACT, PT HANDS SWOLLEN. CENTENO DRAINING BRY URINE, BS ACTIVE, NO BM THIS SHIFT. PT ON SEDATION VACATION FROM [facility] STARTING AT [address] CORDOVA. PT OPENS EYES SPONTANEOUSLY, PT TRACKS STAFF VOICE. PT NOT FOLLOWING COMMANDS. PRECEDEX INF AT 0.2MCG/KG. NEW BAG STARTED AT 1845. WILL REPORT TO MOBILE PRODUCT MANAGER.
--- NOTE | 2019-07-23 19:34 | NUR ---
ASSUMED CARE OF PT AT 1900. BEDSIDE REPORT RECEIVED FROM NELY SANDERS. PT IS AWAKE, BUT CURRENTLY NOT RESPONDING. PT'S BLOOD PRESSURES WERE HIGH, SO PROPOFOL RESTARTED AT HALF PREVIOUS RATE. PT BLOOD PRESSURES TOLERATING.
[2019-07-24 04:28] LABS: Hematocrit 35.3 % (33.0-51.0); Hemoglobin 10.7 g/dL (11.5-16.0); Mean Corpuscular HGB 29.7 pg (26.0-34.0); Mean Corpuscular HGB Conc 30.3 g/dL (31.5-36.5); Mean Corpuscular Volume 98 fL (80-100); Mean Platelet Volume 9.8 fL (9.1-12.4); Platelet Count 196 K/mm3 (150-400); RDW Coefficient Variation 16.9 % (11.7-14.2); RDW Standard Deviation 58.7 fL (35.1-46.3); White Blood Cell Count 9.47 K/mm3 (4.00-11.30)
[2019-07-24 05:03] LABS: BASOPHILS PERCENT MAN 0 % (0-2); EOSINOPHILS PERCENT MAN 0 % (0-6); LYMPHOCYTES ABSOLUTE MAN 0.85 K/mm3 (0.84-5.20); LYMPHOCYTES PERCENT MAN 9 % (21-46); MONOCYTES ABSOLUTE MAN 1.04 K/mm3 (0.16-1.47); MONOCYTES PERCENT MAN 11 % (4-13); MYELOCYTE ABSOLUTE MAN 0.28 K/mm3 (0.00-0.00); MYELOCYTE PERCENT MAN 3 % (0-0); NEUTROPHILS ABSOLUTE MAN 7.29 K/mm3 (1.96-9.15); SEG NEUTROPHILS PERCENT MAN 77 % (41-73); TOTAL CELLS COUNTED 100
[2019-07-24 05:25] LABS: Albumin, Blood 2.9 g/dL (3.4-5.0); Anion Gap 6 mmol/L (6-16); Blood Urea Nitrogen 45 mg/dL (8-24); CO2, Blood 29 mmol/L (21-32); Calcium, Blood 8.8 mg/dL (8.5-10.1); Chloride, Blood 105 mmol/L (98-108); Creatinine, Blood 0.63 mg/dL (0.40-1.00); Glomerular Filtration Rate >60 (60-); Glucose, Blood 292 mg/dL (70-99); Phosphorus, Blood 4.1 mg/dL (2.5-4.9); Potassium, Blood 4.3 mmol/L (3.5-5.5); Sodium, Blood 140 mmol/L (136-145); Vancomycin, Trough 19.7 ug/mL (5.0-10.0)
--- NOTE | 2019-07-24 06:03 | NUR ---
PT REMAINED ON LOWER DOSE PROPOFOL ALL EVENING. PUT ON STANDBY ON WEAN, BUT PT'S BLOOD PRESSURES INCREASED. PT TOLERATING QUIETLY, BUT IS STILL NOT RESPONSIVE. PT OPENS EYES TO TOUCH. PT BEGINNING TO STOOL, WITH LIQUID, RECTAL TUBE PLACED TO PROTECT SKIN.
--- NOTE | 2019-07-24 09:22 | NUR ---
PT REPOSITION AT O800 TO BACK PT BATHED, AM CARE DONE, AND REPOSITIONED AT 0920 NO CHANGES IN PT STATUS, VSS
--- NOTE | 2019-07-24 10:13 | NUR ---
PT RESTING COMFORTABLY, NO CHANGES IN STATUS WILL CONTINUE TO MONITOR
--- NOTE | 2019-07-24 10:15 | NUR ---
DR WIN AND DR CORDOVA IN TO SEE PT AT APPROX 0900 NO NEW ORDERS ENT TO BE CONSULTED
--- NOTE | 2019-07-24 13:41 | NUR ---
1300-DR CORDOVA AND DR JUÁREZ HERE TO EXCHANGE ETT, SEDATION INCREASED FOR PROCEDURE SEE ICU FLOWSHEET 7.0 ETT PLACED XRAY TO CONFIRM PLACEMENT TUBE FEEDING RESTARTED PER DR CORDOVA RT IN ROOM DURING PROCEDURE PT REPOSITIONED PRIOR TO PROCEDURE AT 1215 AND AFTER PROCEDURE AT 1340
--- NOTE | 2019-07-24 18:15 | NUR ---
PT RESTING COMFORTABLY, FIO2 DECREASED TO 50 %, SATS 93-95%, VSS, RECTAL TUBE IN PLACE WILL REPORT TO NOC RN
--- NOTE | 2019-07-24 19:00 | NUR ---
ASSUMED CARE ASSUMED CARE OF PATIENT. REMAINS INTUBATED- AC 22, TV 400, PEEP 5, FIO2 45%. RR 22. SEDATED WITH PROPOFOL @ 30MCG/KG/MIN AND PRECEDEX @ 0.2MCG/KG/HR. OPENS EYES TO VERBAL STIMULI. MOVES EYES TOWARDS SOUND, BUT DOES NOT TRACK WITH EYES. NO SPONTANEOUS MOVEMENT NOTED. BILATERAL SOFT WRIST RESTRAINTS IN PLACE TO PREVENT SELF-EXTUBATION. MONITOR SHOWS NSR, RATE 60s. BP STABLE, BUT OCCASIONALLY HYPERTENSIVE. OG WITH VITAL HIGH PROTEIN @ 30CC/HR (GOAL RATE IS 45CC/HR). RECTAL TUBE PATENT AND DRAINING DARK BROWN LIQUID STOOL. CENTENO PATENT AND DRAINING DARK YELLOW URINE. POWER GLIDE PATENT TO DANIEL. SEE SHIFT ASSESSMENT FOR FULL ASSESSMENT.
[2019-07-25 03:53] LABS: Hematocrit 36.6 % (33.0-51.0); Mean Corpuscular HGB 29.2 pg (26.0-34.0); Mean Corpuscular HGB Conc 30.1 g/dL (31.5-36.5); Mean Corpuscular Volume 97 fL (80-100); Mean Platelet Volume 9.9 fL (9.1-12.4); Platelet Count 232 K/mm3 (150-400); RDW Coefficient Variation 17.2 % (11.7-14.2); RDW Standard Deviation 59.2 fL (35.1-46.3); Red Blood Cell Count 3.77 M/mm3 (3.80-5.20)
[2019-07-25 04:21] LABS: Albumin, Blood 2.7 g/dL (3.4-5.0); Anion Gap 7 mmol/L (6-16); Blood Urea Nitrogen 46 mg/dL (8-24); CO2, Blood 28 mmol/L (21-32); Calcium, Blood 8.9 mg/dL (8.5-10.1); Chloride, Blood 105 mmol/L (98-108); Creatinine, Blood 0.63 mg/dL (0.40-1.00); Glomerular Filtration Rate >60 (60-); Glucose, Blood 307 mg/dL (70-99); Phosphorus, Blood 3.4 mg/dL (2.5-4.9); Potassium, Blood 4.4 mmol/L (3.5-5.5); Sodium, Blood 140 mmol/L (136-145); Triglycerides 498 mg/dL (30-160)
[2019-07-25 04:25] LABS: BAND PERCENT MAN 2 % (0-8); BASOPHILS PERCENT MAN 0 % (0-2); EOSINOPHILS PERCENT MAN 0 % (0-6); LYMPHOCYTES ABSOLUTE MAN 0.96 K/mm3 (0.84-5.20); LYMPHOCYTES PERCENT MAN 7 % (21-46); METAMYELOCYTE ABSOLUTE MAN 0.13 K/mm3 (0.00-0.00); METAMYELOCYTE PERCENT MAN 1 % (0-0); MONOCYTES ABSOLUTE MAN 0.13 K/mm3 (0.16-1.47); MONOCYTES PERCENT MAN 1 % (4-13); MYELOCYTE ABSOLUTE MAN 0.41 K/mm3 (0.00-0.00); MYELOCYTE PERCENT MAN 3 % (0-0); NEUTROPHILS ABSOLUTE MAN 12.14 K/mm3 (1.96-9.15); SEG NEUTROPHILS PERCENT MAN 86 % (41-73); TOTAL CELLS COUNTED 100
[2019-07-25 04:26] LABS: Vancomycin, Trough 19.9 ug/mL (5.0-10.0)
--- NOTE | 2019-07-25 06:30 | NUR ---
SHIFT SUMMARY NO ACUTE CHANGES DURING NOC. REMAINS INTUBATED. PT HAS BEEN ON SPONTANEOUS PS OF 7, PEEP 5 SINCE 443. SEDATED WITH PROPOFOL AT 10MCG/KG/HR AND PRECEDEX AT 0.4MCG/KG/HR. PT OPENS EYES TO STIMULI AND TURNS HEAD TOWARDS SOUND. DOES NOT TRACK WITH EYES AND DOES NOT FOLLOW COMMANDS. VSS. MEDICATED WITH HYDRALAZINE X 1 DOSE. TUBE FEEDING AT GOAL RATE OF 45CC/HR. RESIDUALS WNL. CENTENO PATENT AND DRAINING DARK YELLOW URINE. RECTAL TUBE PATENT AND DRAINING LIQUID BROWN STOOL. FAMILY UPDATED ON PATIENT'S CONDITION/PLAN OF CARE EARLY IN SHIFT. WILL REPORT TO DAY SHIFT RN WHEN AVAILABLE.
--- NOTE | 2019-07-25 08:40 | NUR ---
AM CARE DONE, ORAL CARE DONE, PT REMAINS ON SPONTANEOUS WITH FIO2 AT 50%, VSS, PT REPOSITIONED
[2019-07-25 09:29] LABS: Source, Urine Catheter
[2019-07-25 09:51] LABS: Bilirubin, Urine Neg (Neg); Blood, Urine 2+ (Neg); Glucose Qualitative, Urine Neg (Neg); Ketones, Urine Neg (Neg); Leukocyte Esterase, Urine Neg (Neg); Nitrite, Urine Neg (Neg); Protein, Urine Neg (Neg); Urobilinogen, Urine NORM (Normal)
[2019-07-25 10:05] LABS: Appearance, Urine Clear (Clear); Color, Urine No Color (P-Yellow)
[2019-07-25 10:07] LABS: Bacteria Not Seen /hpf; Red Blood Cells, Urine 0-2 /hpf (0-2); Squamous Epithelial Cells Not Seen /hpf (Few); White Blood Cells, Urine Not Seen /hpf (0-5)
--- NOTE | 2019-07-25 10:08 | NUR ---
ALBUMIN ORDER DC'D BY DR CHACON, ALBUMIN STOPPED AFTER 32 CC OF ALBUMIN GIVEN
--- NOTE | 2019-07-25 12:14 | NUR ---
PT LUIS ALFREDO HERRERA, REMAINS ON SPNTANEOUS, NO CHANGES. WILL REPORT TO HUGH SANDERS AND [facility]
--- NOTE | 2019-07-25 12:59 | NUR ---
NOTE- PT SEDATED WITH PRECEDEX AT 0.4 MCG/KG/HR. OPENS EYES TO VERBAL STIMULUS, NO RESPONSE TO COMMANDS. ORALLY INTUBATED, TUBE SECURE. TOLERATING SPONTANEOUS SETTINGS VENT, TIDAL VOLUMES 300'S. RESPIRATIONS UNLABORED. NSR. BP STABLE. TUBE FEEDING VIA OGT VITAL HIGH PROTEIN AT 45 CC/HR. POWER GLIDE DANIEL DI, PIV LEFT FA INTACT. UO VIA CENTENO. RECTAL TUBE WITH LIQUID STOOL. BILATERAL WRIST RESTRAINTS, EXTUBATION RISK-UNABLE TO FOLLOW DIRECTIONS. DR. CHACON HERE-UPDATED. FEBRILE, RESP PANEL SENT
[2019-07-25 15:23] LABS: Adenovirus Not Detected (NOT DETECT); Bordetella pertussis Not Detected (NOT DETECT); Chlamydophila pneumoniae Not Detected (NOT DETECT); Coronavirus 229E Not Detected (NOT DETECT); Coronavirus HKU1 Not Detected (NOT DETECT); Coronavirus NL63 Not Detected (NOT DETECT); Coronavirus OC43 Not Detected (NOT DETECT); Human Metapneumovirus Detected (NOT DETECT); Human Rhinovirus/Enterovirus Not Detected (NOT DETECT); Influenza A/2009-H1 Not Detected (NOT DETECT); Influenza A/H1 Not Detected (NOT DETECT); Influenza A/H3 Not Detected (NOT DETECT); Influenza B Not Detected (NOT DETECT); Mycoplasma pneumoniae Not Detected (NOT DETECT); Parainfluenza Virus 1 Not Detected (NOT DETECT); Parainfluenza Virus 2 Not Detected (NOT DETECT); Parainfluenza Virus 3 Not Detected (NOT DETECT); Parainfluenza Virus 4 Not Detected (NOT DETECT); Respiratory Syncytial Virus Not Detected (NOT DETECT)
--- NOTE | 2019-07-25 15:31 | NUR ---
BATH DONE,LINEN CHANGE. PT WITH EYES OPEN, GRIMACING. STILL UNABLE TO MOVE TO COMMANDS. EYES DEVIATED UPWARD, PUPILS REACTIVE. TOLERATING VENT. RX WITH TYLENOL FOR FEVER, ICE PACKS ON. RX FOR GRIMACING-S/S PAIN
--- NOTE | 2019-07-25 15:42 | NUR ---
UPDATE TO DR. CHACON. VSS. PT OPENS EYES TO NAME. WILL CONTINUE TO MONITOR
--- NOTE | 2019-07-25 18:02 | NUR ---
TOLERATED SPONTANEOUS TRIAL, NOW BACK TO SETTINGS FOR REST. PRECEDEX AT 0.4 MCG/KG/HR, OPENS EYES TO NAME, NEURO UNCHANGED. TOLERATING TUBE FEEDS. FEBRILE TEMP 100.9 PT'S SISTER CALLED-UPDATED. CONTINUE TO MONITOR
--- NOTE | 2019-07-25 18:24 | NUR ---
HAS REMAINED FEBRILE. ORDER TO REPEAT COVID. ENHANCED ISOLATION PRECAUTIONS NOW IN PLACE.
--- NOTE | 2019-07-25 20:00 | NUR ---
ASSUMED CARE OF PT AT 1915. REPORT RECEIVED AT BEDSIDE. PT PRESENTS IN BED IN NO APPARENT DISTRESS. PT HAS EYES OPENED TO VERBAL STIMULI. PRECEDEX AT 0.2MCG'S/KG/HOUR. PT WILL NOD HEAD 'YES' OR 'NO' TO QUESTIONS. FAMILY CALLS TO CHECK ON PT'S STATUS. UPDATE GIVEN. WILL REVIEW CHART AND PLAN OF CARE FOR THIS PT.
--- NOTE | 2019-07-25 20:01 | NUR ---
review of pt with nursing . now febrilw will remain availble for family decisional support
--- NOTE | 2019-07-26 01:00 | NUR ---
PT HAS BEEN CHANGED TO AC SETTING DURING EVENING. PT HAS TOLERATED CHANGE. HAS BEEN NODDING 'YES' OR 'NO' TO SIMPLE QUESTIONS. HAS TOLERATED TURNS WELL WITH CEILING LIFT. WILL CONTINUE TO MONITOR.
[2019-07-26 05:07] LABS: Base Excess Venous 2.9 mmol/L; Bicarbonate Venous 26.6 mmol/L (24.0-30.0); PCO2 Venous 45.2 mmHg (38-42); PO2 Venous 82.8 mmHg (38-42)
[2019-07-26 05:27] LABS: BASOPHILS ABSOLUTE AUTO 0.01 K/mm3 (0.00-0.23); BASOPHILS PERCENT AUTO 0 % (0-2); EOSINOPHILS PERCENT AUTO 0 % (0-6); Hematocrit 34.4 % (33.0-51.0); Hemoglobin 10.5 g/dL (11.5-16.0); IMMATURE GRAN PERCENT AUTO 3 % (0-1); LYMPHOCYTES ABSOLUTE AUTO 0.99 K/mm3 (0.84-5.20); LYMPHOCYTES PERCENT AUTO 11 % (21-46); MONOCYTES ABSOLUTE AUTO 0.55 K/mm3 (0.16-1.47); MONOCYTES PERCENT AUTO 6 % (4-13); Mean Corpuscular HGB Conc 30.5 g/dL (31.5-36.5); Mean Corpuscular Volume 98 fL (80-100); Mean Platelet Volume 10.3 fL (9.1-12.4); NEUTROPHILS ABSOLUTE AUTO 7.01 K/mm3 (1.96-9.15); NEUTROPHILS PERCENT AUTO 79 % (41-73); Platelet Count 155 K/mm3 (150-400); RDW Standard Deviation 60.6 fL (35.1-46.3); White Blood Cell Count 8.86 K/mm3 (4.00-11.30)
[2019-07-26 05:45] LABS: Albumin, Blood 2.6 g/dL (3.4-5.0); Anion Gap 6 mmol/L (6-16); Blood Urea Nitrogen 47 mg/dL (8-24); Bun/Creatinine Ratio 73.2 (12.0-20.0); CO2, Blood 29 mmol/L (21-32); Calcium, Blood 8.7 mg/dL (8.5-10.1); Chloride, Blood 106 mmol/L (98-108); Creatinine, Blood 0.64 mg/dL (0.40-1.00); Glomerular Filtration Rate >60 (60-); Glucose, Blood 319 mg/dL (70-99); Phosphorus, Blood 3.4 mg/dL (2.5-4.9); Potassium, Blood 4.3 mmol/L (3.5-5.5); Sodium, Blood 141 mmol/L (136-145)
--- NOTE | 2019-07-26 06:30 | NUR ---
PT NEEDED TO BE PLACED BACK TO PROPOFOL DURING THE NIGHT WHILE ON AC SETTING PER VENT. THIS AM HAVE BEEN ABLE TO TO PLACE PT BACK TO SPONTANEOUS. PT BACK ON PRECEDEX AT 0.5 MCG/KG/HOUR. HAVE SUCTIONED PT WITH RETURN OF YELLOW SECRETION. HAVE GIVEN TYLENOL PER OGT FOR TEMP MAX 102.0. WILL CONTINUE TO MONITOR PT, AND WILL REPORT OFF TO ONCOMING RN.
--- NOTE | 2019-07-26 08:45 | NUR ---
ASSESSMENT- PT SEDATED WITH PROPOFOL AT 15 MCG/KG/MIN AND PRECEDEX AT 0.5. ORALLY INTUBATED, TUBE SECURE. TOLERATING SPONTANEOUS TRIAL. EYES OPEN, LOOKS AT NURSE. NO RESPONSE TO DIRECTIONS. NSR, BP STABLE. NS TKO. PIV, MIDLINE IV INTACT. ARMS SWOLLEN. LUNGS WITH EXPIRATORY WHEEZES. TUBE FEEDING VITAL HIGH PROTEIN AT 45 CC GOAL RATE. UO VIA CENTENO. RECTAL TUBE WITH SMALL AMOUNT LIQUID STOOL. BILATERAL WRIST RESTRAINTS FOR SAFETY, EXTUBATION RISK. REPOSITIONED.
--- NOTE | 2019-07-26 13:30 | NUR ---
DR. CHACON HERE-UPDATED. REMAINS FEBRILE-RX WITH TYLENOL. REPOSITIONED. TOLERATING VENT-SPONTANEOUS SETTINGS.
--- NOTE | 2019-07-26 15:58 | NUR ---
FEBRILE-ICE PACKS TO ARMPITS. REPOSITIONED. AWAKE, FOLLOWS WITH EYES. TOLERATING VENT. CONTINUE TO MONITOR. DR. CHACON HERE-UPDATED
--- NOTE | 2019-07-26 18:21 | NUR ---
TEMP MAX 102.3 NOW 101.7. LINEN CHANGE, REPOSITIONED. NSR 70'S. BP STABLE. TOLERATING TUBE FEED. RECTAL TUBE INTACT. UO GOOD. EDEMATOUS, ARMS VERY SWOLLEN. TIDAL VOLUMES NOW 300'S, BACK TO VENT SETTINGS. MORE RESTLESS, PRECEDEX TO 0.7 WITH IMPROVEMENT. EYES OPEN, DOES NOD HEAD AT TIMES. PT'S DAUGHTER CALLED-ABLE TO USE PT'S CELL PHONE FOR CONFERENCE CALL WITH FAMILY MEMBERS.
--- NOTE | 2019-07-26 20:00 | NUR ---
ASSUMED CARE OF PT AT 1915. REPORT RECEIVED AT BEDSIDE. PT PRESENTS IN BED. VENTED. SETTINGS CHECKED AND VERIFIED WITH OFF GOING RN. PT IN NO APPARENT DISTRESS AT THIS TIME. PRECEDEX DRIP AT 0.7 MCG'S. DOES HAVE LOW GRADE FEVER AT THIS TIME. WILL REVIEW CHART AND PLAN OF CARE FOR THIS PT.
--- NOTE | 2019-07-27 00:30 | NUR ---
PT TOLERATES Q 2 HOUR TURNS IN BED. SMALL AMOUNT OF LIGHT YELLOW SECRETIONS RETURNED WITH ETT SUCTIONING. PT DOES NOD HEAD 'YES' AND 'NO' WITH SIMPLE QUESTIONS. LEFT ARM SHE WILL PULL AGAINST RESISTANCE, AND NO REACTION FROM UPPER RIGHT EXTREMITY.
[2019-07-27 04:11] LABS: Base Excess Venous 4.6 mmol/L; Bicarbonate Venous 28.1 mmol/L (24.0-30.0); PO2 Venous 62.3 mmHg (38-42); pH Blood Venous 7.44 (7.34-7.37)
[2019-07-27 04:13] LABS: BASOPHILS ABSOLUTE AUTO 0.01 K/mm3 (0.00-0.23); BASOPHILS PERCENT AUTO 0 % (0-2); EOSINOPHILS ABSOLUTE AUTO 0.04 K/mm3 (0.00-0.68); EOSINOPHILS PERCENT AUTO 1 % (0-6); Hematocrit 32.3 % (33.0-51.0); Hemoglobin 9.9 g/dL (11.5-16.0); IMMATURE GRAN ABSOLUTE AUTO 0.12 K/mm3 (0.00-0.10); IMMATURE GRAN PERCENT AUTO 2 % (0-1); LYMPHOCYTES ABSOLUTE AUTO 1.44 K/mm3 (0.84-5.20); LYMPHOCYTES PERCENT AUTO 18 % (21-46); MONOCYTES ABSOLUTE AUTO 0.64 K/mm3 (0.16-1.47); MONOCYTES PERCENT AUTO 8 % (4-13); Mean Corpuscular HGB 29.7 pg (26.0-34.0); Mean Corpuscular HGB Conc 30.7 g/dL (31.5-36.5); Mean Corpuscular Volume 97 fL (80-100); Mean Platelet Volume 9.7 fL (9.1-12.4); NEUTROPHILS ABSOLUTE AUTO 5.92 K/mm3 (1.96-9.15); NEUTROPHILS PERCENT AUTO 73 % (41-73); Platelet Count 118 K/mm3 (150-400); RDW Coefficient Variation 16.4 % (11.7-14.2); RDW Standard Deviation 57.8 fL (35.1-46.3); Red Blood Cell Count 3.33 M/mm3 (3.80-5.20); White Blood Cell Count 8.17 K/mm3 (4.00-11.30)
[2019-07-27 04:29] LABS: Albumin, Blood 2.4 g/dL (3.4-5.0); Anion Gap 5 mmol/L (6-16); Blood Urea Nitrogen 43 mg/dL (8-24); CO2, Blood 29 mmol/L (21-32); Calcium, Blood 8.6 mg/dL (8.5-10.1); Chloride, Blood 108 mmol/L (98-108); Glomerular Filtration Rate >60 (60-); Glucose, Blood 241 mg/dL (70-99); Magnesium, Blood 2.4 mg/dL (1.6-2.4); Phosphorus, Blood 3.1 mg/dL (2.5-4.9); Potassium, Blood 3.9 mmol/L (3.5-5.5); Sodium, Blood 142 mmol/L (136-145)
--- NOTE | 2019-07-27 06:30 | NUR ---
PT SUCCESSFULLY IS SWITCHED OVER TO PS. TOLERATING THIS WELL. HAVE KEPT PRECEDEX DRIP AT 0.7 MCG'S. CONTINUES WITH DIGNISHIELD FOR LIQUID STOOLS. HAS 250 ML BROWN LIQUID STOOL. HAVE SUCTIONED PT AT TIMES DURING THE NIGHT, RETURN OF SMALL AMOUNT OF LIGHT YELLOW SPUTUM. WILL CONTINUE TO MONITOR PT, AND WILL REPORT OFF TO ONCOMING RN.
--- NOTE | 2019-07-27 08:30 | NUR ---
ASSUMED CARE: REPORT RECEIVED FROM TREVOR Lima RN. ASSUMED CARE OF THIS PT AT APPROX 0700. ON ASSESSMENT, THE PT IS INTUBATED & AWAKE. SHE IS CALM & COOPERATIVE W/ PRECEDEX INFUSING AT 0.7 MCG/KG/HR. SHE IS FOLLOWING COMMANDS, TRACKING W/ EYES & ANSWERING YES/ NO QUESTIONS W/ HEAD NODS. RESPONDS WELL TO VERBAL REASSURANCE WHEN ANXIOUS. LS ARE DIM T/O, VENT SETTINGS: SPONT W/ PS 7, PEEP 5 & FIO2 45%, O2 SATS > 92%. MONITOR SHOWS SR W/ HR 70s, BP STABLE. OG & RECTAL TUBES PATENT. CENTENO PATENT/ DRAINING. SKIN CONDITION OVERALL CDI & PT REPOSITIONED Q2H TO MAINTAIN SKIN INTEGRITY. WILL CONTINUE TO MONITOR & UPDATE NEEDED.
--- NOTE | 2019-07-27 12:22 | NUR ---
EXTUBATION: THIS RN & ROLF [place], RT, AT BEDSIDE FOR EXTUBATION. PT EXTUBATED AT 1150 & PLACED ON 4L NC W/ O2 SATS > 90%. INCREASED TO 5L BY ROLF TO MAINTAIN SATS > 92%. PT IS TOLERATING WELL, NEBULIZER TREATMENT GIVEN PER RT. RESTRAINTS REMOVED AT TIME OF EXTUBATION.
--- NOTE | 2019-07-27 13:34 | NUR ---
Pt extubated will speak with pt when recovred and follow up with terminal clerk plan of care for her comorbid conditions.
--- NOTE | 2019-07-27 16:55 | NUR ---
DR CHACON: CALL TO PROVIDER TO NOTIFY HER THAT PT HAS FAILED BEDSIDE SWALLOW EVALUATION. SHE STS STRICT NPO AT THIS TIME, HOLD ALL MEDS & TX BREAKTHROUGH HTN W/ HYDRALAZINE PER EMAR. NOTIFIED HER THAT PT HAS CURRENT C/O PAIN TO BILAT FEET & BACK. SHE DOES NOT WANT THE PT TO HAVE ANY ANALGESICS THAT MAY CAUSE SEDATION. TYLENOL NC & LIDODERM PATCH ORDERS PLACED.
[2019-07-27 17:55] LABS: Vancomycin, Trough 13.7 ug/mL (5.0-10.0)
--- NOTE | 2019-07-27 19:15 | NUR ---
SHIFT SUMMARY: NO ACUTE CHANGES SINCE PRIOR UPDATES. PT MENTATION IS CLEARING MORE THIS AFTERNOON & SHE IS EXPRESSING HER NEEDS APPROPRIATELY. PRECEDEX BEING TITRATED DOWN PT TOLERATES. LS REMAIN DIM T/O, PT ON 5L NC W/ O2 SATS > 92%. MONITOR SHOWS SR W/ HR 70s, BP STABLE. RECTAL TUBE IS PATENT/ DRAINING DARK BROWN STLS. TEMP CENTENO PATENT/ DRAINING. SKIN CONDITION UNCHANGED. REPORT HAS BEEN GIVEN TO JENNIFER Jordan RN TO ASSUME CARE.
--- NOTE | 2019-07-28 01:59 | NUR ---
START OF SHIFT NOTE: REPORT FROM LOIS SANDERS. PT LYING IN BED AWAKE. VSS. PT A+O SLURRED SPEECH IMPROVED OVER SHIFT. PT FOLLOWING COMMANDS BUT UNABLE TO LIFT EITHER ARM BUT TRIES. PT LOWER EXT WEAK BUT IS ABLE TO MOVE EACH SLIGHTLY. PT WAS EMOTIONAL DURING INITIAL ASSESSENT AND WAS PROVIDED EMOTIONAL SUPPORT. PT EXPRESSED FEAR OF NOT BEING HELPED OR LOOKED UPON. PT WAS REASSURED OF ROUNDING TIMES, BEING MONITORED, AND IN DURECT VIEW OF NURSES STATTION. PT MORE CALM AND CONVERSIVE SHIFT AND INTERACTION WENT ON. PT WITH CENTENO CATH AND RECTAL TUBE. PT WAS TURNED AND RECTAL TUBE DEFLATED, ADVANCED, THEN REINFLATED. PT HAD C/O RECTAL PAIN AND SORENESS WHICH WAS RELIEVED AFTER RODERICK AND TUBE CARE PROVIDED. PT IS TURNED TO SIDES TO ALLOW RECTAL TUBE TO DRAIN PROPERLY. PT IS MAX LIFT AND ASSIST FOR CARE VIA CEILING LIFT AND TOLERATES VERY WELL. PT UNABLE TO USE CALL LIGHT WITH HANDS BUT ABLE TO BY SLIDING FOOT. CALL LIGHT WITHIN REACH WITH PT DEMONSTRATING ABILITY TO USE. PT UPDATED ON PLAN FOR SUNDAY AND IS LEFT TO SLEEP. CURRENTLY PT VSS PER MONITOR. PT ON 2L N/C AFTER C/O NOT LIKING THE CPAP. SATS 97%.
[2019-07-28 04:15] LABS: BASOPHILS ABSOLUTE AUTO 0.02 K/mm3 (0.00-0.23); BASOPHILS PERCENT AUTO 0 % (0-2); EOSINOPHILS ABSOLUTE AUTO 0.11 K/mm3 (0.00-0.68); EOSINOPHILS PERCENT AUTO 1 % (0-6); Hematocrit 34.3 % (33.0-51.0); Hemoglobin 10.5 g/dL (11.5-16.0); IMMATURE GRAN ABSOLUTE AUTO 0.16 K/mm3 (0.00-0.10); IMMATURE GRAN PERCENT AUTO 1 % (0-1); LYMPHOCYTES ABSOLUTE AUTO 1.66 K/mm3 (0.84-5.20); LYMPHOCYTES PERCENT AUTO 14 % (21-46); MONOCYTES ABSOLUTE AUTO 0.83 K/mm3 (0.16-1.47); MONOCYTES PERCENT AUTO 7 % (4-13); Mean Corpuscular HGB 29.4 pg (26.0-34.0); Mean Corpuscular HGB Conc 30.6 g/dL (31.5-36.5); Mean Corpuscular Volume 96 fL (80-100); Mean Platelet Volume 10.2 fL (9.1-12.4); NEUTROPHILS ABSOLUTE AUTO 9.45 K/mm3 (1.96-9.15); NEUTROPHILS PERCENT AUTO 77 % (41-73); Platelet Count 145 K/mm3 (150-400); RDW Standard Deviation 56.2 fL (35.1-46.3); Red Blood Cell Count 3.57 M/mm3 (3.80-5.20); White Blood Cell Count 12.23 K/mm3 (4.00-11.30)
[2019-07-28 04:54] LABS: Magnesium, Blood 2.3 mg/dL (1.6-2.4)
[2019-07-28 04:56] LABS: Anion Gap 4 mmol/L (6-16); Blood Urea Nitrogen 33 mg/dL (8-24); Bun/Creatinine Ratio 62.5 (12.0-20.0); CO2, Blood 29 mmol/L (21-32); Calcium, Blood 8.7 mg/dL (8.5-10.1); Chloride, Blood 109 mmol/L (98-108); Creatinine, Blood 0.53 mg/dL (0.40-1.00); Glomerular Filtration Rate >60 (60-); Glucose, Blood 154 mg/dL (70-99); Potassium, Blood 3.5 mmol/L (3.5-5.5); Sodium, Blood 142 mmol/L (136-145)
--- NOTE | 2019-07-28 06:26 | NUR ---
PT C/O FOOT PAIN INCREASING T/O NOC TO INTOLERABLE. VERBAL ORDER GIVEN FROM DR. FAJARDO FOR FENTANYL (SEE NEW ORDER). PRECEDEX PAUSED. FENTANYL GIVEN. PT STATES IS WORKING.
--- NOTE | 2019-07-28 07:14 | NUR ---
SHIFT SUMMARY: PT SPEECH AND COGNITIVE IMPROVED GREATLY T/O NOC. PT SPEAKING FULL CLEAR SENTENCES. VSS. PT ONLY C/O INCREASED NEUROPATHY PAIN. PRECEDX STOPPED. FENTANYL GIVEN, PT STATED RELIEF. PT CONTINUES LIQUID BROWN STOOL INTO RECTAL TUBE. CENTENO CATH WITH DARK YELLOW SEDIMENT URINE. PT REQUESTING TO SPEAK TO HER CHILDREN TODAY. PT WITH VERBAL UNDERSTANDING OF TODAY'S PLAN. REPORT GIVEN TO TREASURE SANDERS.
--- NOTE | 2019-07-28 07:37 | NUR ---
Straightened up in bed for breathing treament. RN in room. call light in reach.
--- NOTE | 2019-07-28 08:15 | NUR ---
ASSUMED CARE OF PT. PT IS DROWSY, BUT CONVERSING APPROPRIATELY. PT SLIGHTLY DISORIENTED TO TIME, BUT REORIENTS WITH GOOD RESULTS. PT IS ABLE TO FOLLOW COMMANDS,BUT GENERALIZED WEAKNESS. PT REPORTS DISCOMFORT IN BACK AND LEGS THAT IS CHRONIC, 7/10, ACHEY AND BURNING IN CHARACTER; REPOSITIONED USING CEILING LIFT. MONITOR SR 80'S, B/P 165/67, AFEBRILE. LUNGS: DIMINISHED BS THROUGHOUT WITH EXP WHEEZES IN UPPER REY, MOIST COUGH, SPO2 92-93% 3L NC. PT DENIES FEELING SOB. ABD: FIRMLY DISTENDED WITH POSITIVE BT'S, NON TENDER, RECTAL TUBE IN PLACE DRAINING LIQ BRWN STOOL. PT DENIES NAUSEA/EMESIS. PT NPO UNTIL EVALUATED BY SPEECH THERAPY. FC DRAINING BRY URINE WITH SEDIMENT. PT HAS TRACE GEN EDEMA.
--- NOTE | 2019-07-28 09:35 | NUR ---
PT UP IN THE CHAIR, WAS EVALUATED BY SPEECH THERAPY-OK TO SWALLOW PILLS ONE AT A TIME WITH WATER. SPEECH THERAPY ADVANCED PT'S DIET TO SOFT. PT REPORTS SHE IS COMOFORTABLE UP IN THE CHAIR.
--- NOTE | 2019-07-28 10:45 | NUR ---
PT WAS ASSISTED BACK TO BED WITH CEILING LIFT, BACK WASHED AND LINENS CHANGED. PT REPORTS INCREASING BACK AND LEG DISCOMFORT 10/30, ADMINISTERED [address] DONNELLY IN TO EVALUATE PT, UPDATED.
--- NOTE | 2019-07-28 11:45 | NUR ---
PT REMAINS UNCOMFORTABLE, NO CHANGE IN PAIN LEVEL; ADMINISTERED 50 MCG IV FENTANYL AND REPO WITH 2 PERSON ASSIST.
--- NOTE | 2019-07-28 12:15 | NUR ---
PT REPORTS MORE COMFORTABLE POST FENTANYL AND REPO, PAIN LEVEL 3/10. ASSESSMENTS UNCHNAGED, VS REMAIN WNL FOR PT, UO ADEQUATE.
--- NOTE | 2019-07-28 13:27 | NUR ---
PT TOOK 50% OF LUNCH, REQUIRED ASSISTANCE.
--- NOTE | 2019-07-28 14:20 | NUR ---
PT RESTING INTERMITTENTLY, REPOSITIONED WITH 2 PERSON ASSIST, TOLERATED WELL.
--- NOTE | 2019-07-28 15:35 | NUR ---
REPORT WAS CALLED TO ROYCE RN PCU; ALL QUESTIONS ANSWERED. PT WAS TRANSFERRED TO PCU 4 WITH ALL BELONGINGS, CONDITION STABLE.
--- NOTE | 2019-07-28 15:53 | NUR ---
UPDATE PT TRANSFERRED TO ROOM FROM ICU. VS STABLE. PT ALERT AND ORIENTED TO SELF, PLACE, AND FOLLOWING DIRECTIONS. O2 SATS REMAIN ABOVE 90% ON 3L NC. HR NSR. PT DENIES ANY PAIN. PT HAS STRONG BREWER HELPER BUT UNABLE TO LIFT HER ARMS OR LEGS. PT WEAK AND LETHERGIC. PT ORIENTED TO NEW ROOM. POWERGLIDE TO RIGHT ARM SALINE LOCKED. PT ON BARIATRIC BED. WILL CONTINUE TO MONITOR CLOSELY.
[2019-07-29 05:20] LABS: BASOPHILS ABSOLUTE AUTO 0.03 K/mm3 (0.00-0.23); BASOPHILS PERCENT AUTO 0 % (0-2); EOSINOPHILS ABSOLUTE AUTO 0.13 K/mm3 (0.00-0.68); EOSINOPHILS PERCENT AUTO 1 % (0-6); Hemoglobin 10.7 g/dL (11.5-16.0); IMMATURE GRAN ABSOLUTE AUTO 0.12 K/mm3 (0.00-0.10); IMMATURE GRAN PERCENT AUTO 1 % (0-1); LYMPHOCYTES ABSOLUTE AUTO 1.95 K/mm3 (0.84-5.20); LYMPHOCYTES PERCENT AUTO 11 % (21-46); MONOCYTES ABSOLUTE AUTO 1.11 K/mm3 (0.16-1.47); MONOCYTES PERCENT AUTO 6 % (4-13); Mean Corpuscular HGB 29.6 pg (26.0-34.0); Mean Corpuscular HGB Conc 30.6 g/dL (31.5-36.5); Mean Corpuscular Volume 97 fL (80-100); NEUTROPHILS ABSOLUTE AUTO 14.49 K/mm3 (1.96-9.15); NEUTROPHILS PERCENT AUTO 81 % (41-73); Platelet Count 171 K/mm3 (150-400); RDW Standard Deviation 57.1 fL (35.1-46.3); Red Blood Cell Count 3.62 M/mm3 (3.80-5.20); White Blood Cell Count 17.83 K/mm3 (4.00-11.30)
--- NOTE | 2019-07-29 05:38 | NUR ---
SHIFT SUMMARY PT HAS HAD NO ACUTE CHANGES THIS SHIFT, MEDICATED 2X FOR BACK PAIN, REPOS Q2, PT HAS BEEN CONFUSED T/O SHIFT, BUT ALERT TO EVENT, PT IS BEDRESTING AT THIS TIME, WILL CONT TO MONITOR UNTIL REPORT GIVEN TO DAY RN.
[2019-07-29 05:44] LABS: Alanine Aminotransfer (ALT/SGP 61 U/L (12-78); Albumin, Blood 2.6 g/dL (3.4-5.0); Albumin/Globulin Ratio 0.9 (0.8-1.8); Alk Phos 45 U/L (50-136); Anion Gap 6 mmol/L (6-16); Aspartate Aminotrans (AST/SGOT 53 U/L (12-37); Bilirubin, Total 0.6 mg/dL (0.1-1.0); Blood Urea Nitrogen 27 mg/dL (8-24); Bun/Creatinine Ratio 49.6 (12.0-20.0); CO2, Blood 28 mmol/L (21-32); Calcium, Blood 8.8 mg/dL (8.5-10.1); Chloride, Blood 108 mmol/L (98-108); Creatinine, Blood 0.54 mg/dL (0.40-1.00); Globulin, Blood 2.9 g/dL (2.2-4.0); Glomerular Filtration Rate >60 (60-); Glucose, Blood 141 mg/dL (70-99); Potassium, Blood 3.5 mmol/L (3.5-5.5); Sodium, Blood 142 mmol/L (136-145); Total Protein, Blood 5.5 g/dL (6.4-8.2)
[2019-07-29 05:46] LABS: Percent Saturation 15.3 % (15.0-50.0)
[2019-07-29 05:48] LABS: Vancomycin, Trough 21.2 ug/mL (5.0-10.0)
--- NOTE | 2019-07-29 17:03 | NUR ---
SHIFT SUMMARY PT ALERT AND ORIENTED TO SELF, FOLLOWING DIRECTIONS, AND PLACE. VS STABLE. O2 SATS REMAIN ABOVE 90% ON 3L NC. HR NSR. PT UNABLE TO MOVE EXTREMETIES. PT REPOSITIONED Q2H. PT UP TO CHAIR VIA LIFT FOR ALL MEALS. RECTAL TUBE TO BE REMOVED AFTER DINNER WHEN PT CAN GET BACK IN THE BED. CENTENO PATENT AND DRAINING. DR. BORWN IN WITH ORDERS TO TRANSFER TO MEDICAL FLOOR. REPORT CALLED TO MEDICAL FLOOR RN.
--- NOTE | 2019-07-29 17:45 | NUR ---
PATIENT TRANSFERRED FROM PCU TO ROOM 354. PATIENT ORIENTED TO ROOM AND USE OF CALL LIGHT. PATIENT VERY WEAK AND WS PLACED IN A LIFT ROOM. 3LO2 TO MAINTAIN SATS. REPORTS BACK PAIN, LIDOCAIN PATCH IN PLACE. CENTENO TO GRAVITY. RECTAL TUBE IN PLACE AND THERE ARE ORDERS TO DC. CALL LIGHT WITHIN REACH.
[2019-07-29 22:52] LABS: Vancomycin, Trough 16.7 ug/mL (5.0-10.0)
[2019-07-30 05:11] LABS: BASOPHILS ABSOLUTE AUTO 0.03 K/mm3 (0.00-0.23); BASOPHILS PERCENT AUTO 0 % (0-2); EOSINOPHILS PERCENT AUTO 1 % (0-6); Hematocrit 34.2 % (33.0-51.0); Hemoglobin 10.3 g/dL (11.5-16.0); IMMATURE GRAN ABSOLUTE AUTO 0.11 K/mm3 (0.00-0.10); IMMATURE GRAN PERCENT AUTO 1 % (0-1); LYMPHOCYTES PERCENT AUTO 13 % (21-46); MONOCYTES ABSOLUTE AUTO 0.98 K/mm3 (0.16-1.47); MONOCYTES PERCENT AUTO 7 % (4-13); Mean Corpuscular HGB 29.1 pg (26.0-34.0); Mean Corpuscular HGB Conc 30.1 g/dL (31.5-36.5); Mean Corpuscular Volume 97 fL (80-100); Mean Platelet Volume 10.3 fL (9.1-12.4); NEUTROPHILS ABSOLUTE AUTO 11.85 K/mm3 (1.96-9.15); NEUTROPHILS PERCENT AUTO 79 % (41-73); Platelet Count 178 K/mm3 (150-400); RDW Coefficient Variation 16.1 % (11.7-14.2); RDW Standard Deviation 57.1 fL (35.1-46.3); Red Blood Cell Count 3.54 M/mm3 (3.80-5.20); White Blood Cell Count 14.97 K/mm3 (4.00-11.30)
[2019-07-30 05:37] LABS: Albumin, Blood 2.7 g/dL (3.4-5.0); Anion Gap 3 mmol/L (6-16); Blood Urea Nitrogen 24 mg/dL (8-24); Bun/Creatinine Ratio 39.7 (12.0-20.0); CO2, Blood 30 mmol/L (21-32); Chloride, Blood 105 mmol/L (98-108); Creatinine, Blood 0.61 mg/dL (0.40-1.00); Glomerular Filtration Rate >60 (60-); Glucose, Blood 142 mg/dL (70-99); Phosphorus, Blood 3.3 mg/dL (2.5-4.9); Potassium, Blood 3.5 mmol/L (3.5-5.5); Sodium, Blood 138 mmol/L (136-145)
--- NOTE | 2019-07-30 06:24 | NUR ---
SHIFT SUMMARY- PT. WITH INTERMITTENT CONFUSION T/O THE NIGHT. C/O PAIN TO RT LEG 1X. MEDICATED PER EMAR, WITH GOOD RELIEF. PT. PLACED ON BIPAP, APPEARED TO HAVE SLEPT COMFORTABLY DURING THE REST OF THE NIGHT. NO APPARENT DISTRESS NOTED. REPOSITIONED FOR COMFORT PRN USING CEILING LIFT. PT. DENIES ANY NEEDS AT THIS TIME. CALL LIGHT WITHIN REACH AND SIDE RAILS UP X2. WILL CONT TO MONITOR.
--- NOTE | 2019-07-30 19:15 | NUR ---
SHIFT SUMMARY: NO ACUTE CHANGES TO REPORT THIS SHIFT. PT ALERT; CONFUSED; CALM AND COOPERATIVE WITH CARE. MEDICATED FOR BACK PAIN PER EMAR. O2 @ 3L DRING DAY; BIPAP @ NOC; CONT BIOX IN PLACE. CENTENO CATHETER D/C'D THIS SHIFT. ABX & STEROIDS CONTINUING; PT & OT FOLLOWING. REPORT GIVEN TO ONCOMING RN.
--- NOTE | 2019-07-30 22:13 | NUR ---
PATIENT RESTING IN ROOM STATING 98% ON 3L O2 NC. BEDBOUND. CBG 141. CALL LIGHT IN REACH.
--- NOTE | 2019-07-31 03:02 | NUR ---
SHIFT SUMMARY PATIENT HAD NO ACUTE CHANGES OBSERVED. AXO 3 WITH CONFUSION AT TIMES. BEDBOUND AND LIFT PATIENT. MORBID OBESE. POWERGLIDE DANIEL AND PIV REMAINS INTACT. ON 2L O2 NC USING CONTINUOUS PULSE OXIMETRY. BIPAP AT NIGHT. VSS/AFEBRILE. DENIES PAIN, SOB, AND N/V. CALL LIGHT IN REACH. BED IN LOWEST POSITION. WILL CONTINUE TO MONITOR UNTIL DAY SHIFT NURSE ASSUMES CARE.
[2019-07-31 04:50] LABS: BASOPHILS ABSOLUTE AUTO 0.02 K/mm3 (0.00-0.23); BASOPHILS PERCENT AUTO 0 % (0-2); EOSINOPHILS ABSOLUTE AUTO 0.09 K/mm3 (0.00-0.68); EOSINOPHILS PERCENT AUTO 1 % (0-6); Hematocrit 32.9 % (33.0-51.0); IMMATURE GRAN ABSOLUTE AUTO 0.05 K/mm3 (0.00-0.10); IMMATURE GRAN PERCENT AUTO 1 % (0-1); LYMPHOCYTES ABSOLUTE AUTO 1.55 K/mm3 (0.84-5.20); LYMPHOCYTES PERCENT AUTO 16 % (21-46); MONOCYTES ABSOLUTE AUTO 0.65 K/mm3 (0.16-1.47); MONOCYTES PERCENT AUTO 7 % (4-13); Mean Corpuscular HGB 29.3 pg (26.0-34.0); Mean Corpuscular HGB Conc 30.4 g/dL (31.5-36.5); Mean Corpuscular Volume 97 fL (80-100); Mean Platelet Volume 10.3 fL (9.1-12.4); NEUTROPHILS PERCENT AUTO 75 % (41-73); Platelet Count 161 K/mm3 (150-400); RDW Standard Deviation 56.6 fL (35.1-46.3); Red Blood Cell Count 3.41 M/mm3 (3.80-5.20); White Blood Cell Count 9.46 K/mm3 (4.00-11.30)
[2019-07-31 05:07] LABS: Albumin, Blood 2.6 g/dL (3.4-5.0); Anion Gap 4 mmol/L (6-16); Blood Urea Nitrogen 23 mg/dL (8-24); Bun/Creatinine Ratio 41.1 (12.0-20.0); CO2, Blood 30 mmol/L (21-32); Calcium, Blood 9.2 mg/dL (8.5-10.1); Chloride, Blood 106 mmol/L (98-108); Creatinine, Blood 0.56 mg/dL (0.40-1.00); Glomerular Filtration Rate >60 (60-); Glucose, Blood 130 mg/dL (70-99); Phosphorus, Blood 3.1 mg/dL (2.5-4.9); Potassium, Blood 3.6 mmol/L (3.5-5.5); Sodium, Blood 140 mmol/L (136-145)
--- NOTE | 2019-07-31 20:20 | NUR ---
ASSUMED CARE RECEIVED REPORT FROM MARILYN REESE. ASSUMED CARE OF PT. THIS RN IN ROOM WITH HOSPICE NURSE PRACTITIONER REPOSITIONING PT, PROVIDING HS CARE. PT APPEARS COMFORTABLE, NO S/S ACUTE DISTRESS NOTED. O2 SATS STABLE ON 3L/NC. PT DENIES SOB. PT APPEARS COMFORTABLE. CALL LIGHT, POSSESSIONS IN REACH, BED IN LOW POSITION WITH BED ALARM ACTIVATED. WILL CONTINUE TO MONITOR.
--- NOTE | 2019-08-01 00:45 | NUR ---
0045 THIS RN IN PT ROOM ADJUSTING BIPAP, CONT. BI-OX ALARMING. PT SATS BETWEEN 88-91%. PT RESTLESS, BUT DENIES SOB. RT CALLED, PT PLACED BACK ON 3L/NC. O2 SATS RETURNED TO BASELINE OF 94-97%. WILL CONTINUE TO MONITOR.
--- NOTE | 2019-08-01 04:19 | NUR ---
SHIFT SUMMARY PT RESTING COMFORTABLY AT THIS TIME, NO S/S ACUTE DISTRESS NOTED. NO FURTHER EPISODES OF DECREASED 02 SATS NOTED, ASLEEP AT THIS TIME. REPOSITIONED T/O NIGHT WITH LIKO LIFT AND ASSISTANCE OF 2, PT FOLLOWING DIRECTIONS. INCREASINGLY CONFUSED, RANDOMLY CALLING OUT FOR HER GRANDDAUGHTER, TEARFUL AT TIMES. RESISTANT TO CARES AT TIMES, RE-DIRECTABLE. CALL LIGHT IN REACH, HOB ELEVATED, BED IN LOW POSITION WITH BED ALARM ACTIVATED. WILL CONTINUE TO MONITOR UNTIL DAY RN ASSUMES CARE.
[2019-08-01 06:22] LABS: Hematocrit 32.9 % (33.0-51.0); Hemoglobin 10.1 g/dL (11.5-16.0)
[2019-08-01 06:37] LABS: Albumin, Blood 2.8 g/dL (3.4-5.0); Anion Gap 3 mmol/L (6-16); Blood Urea Nitrogen 19 mg/dL (8-24); Bun/Creatinine Ratio 36.8 (12.0-20.0); CO2, Blood 32 mmol/L (21-32); Calcium, Blood 9.2 mg/dL (8.5-10.1); Chloride, Blood 106 mmol/L (98-108); Creatinine, Blood 0.52 mg/dL (0.40-1.00); Glomerular Filtration Rate >60 (60-); Glucose, Blood 118 mg/dL (70-99); Phosphorus, Blood 3.6 mg/dL (2.5-4.9); Potassium, Blood 3.6 mmol/L (3.5-5.5); Sodium, Blood 141 mmol/L (136-145)
--- NOTE | 2019-08-01 16:51 | NUR ---
LIFT, BED, BEDSIDE COMODE, WHEELCHAIR ALL NEED TO BE ORDERED SO FAMILY CAN BRING THE PT HOME. FMLA PAPERWORK DROPPED OFF AT THE ED ENTRANCE. FAMILY NEEDS A LIST OF SUPPLIES THAT THE PT MIGHT NEEDED. FARZANEH (DAUGHTER) [phone] WOULD LIKE TO HEAR FROM THE DOCTOR TO SEE WHAT THE PLAN IS MOVING FORWARD.
--- NOTE | 2019-08-01 19:51 | NUR ---
SHIFT SUMMARY- PT ALERT TO SELF, OFTEN SAYS THINGS THAT DONT MAKE SENCE OR ARE OUT OF CONTEXT. DAUGHTER CALLED AND IS CONCERNED THAT SHE HAS NOT RECIEVED ANY ORDERS FOR THE EQUIPMENT THAT SHE WILL NEED AT HOME TO CARE FOR HER MOTHER. SHE WANTS TO GET READY SO SHE CAN TAKE THE PT HOME AND CARE FOR HER. SEE PREVIOUS NOTE FOR DETAILS. PT HAS BEEN MEDICATED FOR PAIN ONCE THIS SHIFT, SHE STATED HER PAIN WAS 9/10, THEN WHEN PAIN MEDS WERE BROUGHT IN SHE SAID 20/10 ON FOLLOW UP SHE STATED 9/10. FACE SCALE SHOULD BE USED TO DETERMINE PAIN CONTROL NEEDS. PT DOES NOT OFTEN PARTICIPATE IN REPOSITIONING BUT WAS REPOSITIONED APPROXIMATELY EVERY 2 HOURS T/O THE SHIFT. PHYSICAL THERAPY AND OCCUPATIONAL THERAPY CAME TO SEE THE PT.
--- NOTE | 2019-08-02 06:29 | NUR ---
SHIFT SUMMARY PT IS A 63 Y/O FEMALE, ADMITTED FOR CAP WITH AN ANOXIC BRAIN INJURY R/T CODE AND INTUBATION PER REPORT. PT IS A&O X SELF ONLY, WITH OCCASIONAL VISUAL AND AUDIO HALLUCINATIONS. PT HAS TROUBLE WITH PURPOSEFUL MOVEMENT OF EXTREMITIES, AND IS CURRENTLY LIFT/BEDREST. PT WAS MEDICATED ONCE FOR BACK PAIN WITH PRN OXYCODONE. NOCOMPLAINTS OR S/S OF NAUSEA OR SOB. VITAL SIGNS STABLE. NO OTHER ACUTE CHANGES IN PT CONDITION NOTED. WILL CONTINUE TO MONITOR AND TREAT PER EMAR UNTIL HAND OFF TO DAY SHIFT RN.
--- NOTE | 2019-08-02 17:54 | NUR ---
PT IS A/OX3, PLEASANT AND COOPERATIVE, THE PT APPEARS TO BE BREATHING EASILY AT REST ON 3L/MIN O2 VIA NC, THE PT WAS VERY RESTLESS/UNCOMFORTABLE T/O THE DAY PT WAS MEDICATED FOR PAIN T/O THE DAY, PT WAS REPOSITIONED T/O THE DAY, PT ALLOWED THE PHYSICAL THERAPIST TO WORK WITH HER, PT HAS OPEN SHINGLES ON HER RIGHT SIDE FLANK THAT WRAPS AROUND TO HER LEFT SIDE, PT RECTAL AREA AND RODERICK AREA ARE EXCORIATED, NYSTATIN POWDER AND LOTIONS WERE APPLIED, THE PT WAS ASSISTED TO TALK WITH HER FAMILY VIA [employer] TODAY, CALL LIGHT IN REACH, PT IS ON A BARIATRIC BED, WILL CONTINUE TO MONITOR AND ASSESS FOR CHANGES
--- NOTE | 2019-08-03 05:48 | NUR ---
SHIFT SUMMARY PT IS A 63 Y/O FEMALE, ADMITTED FOR [facility] WITH A RECENT HX OF ANOXIC BRAIN INJURY PER REPORT. PT IS A&O X SELF ONLY, AND CURRENTLY BEDBOUND. PT WAS MEDICATED ONCE FOR BACK PAIN DURING THE NIGHT WITH PRN ROXICODONE. NO COMPLAINTS OF NAUSEA OR SOB. VITAL SIGNS STABLE. NO ACUTE CHANGES IN PT CONDITION NOTED DURING THE NIGHT. WILL CONTINUE TO MONITOR AND TREAT PER EMAR UNTIL HAND OFF TO DAY SHIFT RN.
[2019-08-03 17:20] LABS: Base Excess Venous 5.2 mmol/L; Bicarbonate Venous 27.8 mmol/L (24.0-30.0); PCO2 Venous 57.1 mmHg (38-42); PO2 Venous 79.2 mmHg (38-42); pH Blood Venous 7.34 (7.34-7.37)
[2019-08-03 17:35] LABS: Hematocrit 36.2 % (33.0-51.0); Hemoglobin 10.8 g/dL (11.5-16.0); Mean Corpuscular HGB 29.3 pg (26.0-34.0); Mean Corpuscular HGB Conc 29.8 g/dL (31.5-36.5); Mean Corpuscular Volume 98 fL (80-100); Mean Platelet Volume 9.9 fL (9.1-12.4); Platelet Count 180 K/mm3 (150-400); RDW Coefficient Variation 16.1 % (11.7-14.2); RDW Standard Deviation 58.5 fL (35.1-46.3); Red Blood Cell Count 3.69 M/mm3 (3.80-5.20); White Blood Cell Count 7.62 K/mm3 (4.00-11.30)
[2019-08-03 17:52] LABS: Anion Gap 4 mmol/L (6-16); Blood Urea Nitrogen 21 mg/dL (8-24); Bun/Creatinine Ratio 33.8 (12.0-20.0); CO2, Blood 33 mmol/L (21-32); Calcium, Blood 9.4 mg/dL (8.5-10.1); Chloride, Blood 101 mmol/L (98-108); Creatinine, Blood 0.62 mg/dL (0.40-1.00); Glomerular Filtration Rate >60 (60-); Glucose, Blood 212 mg/dL (70-99); Potassium, Blood 4.7 mmol/L (3.5-5.5); Sodium, Blood 138 mmol/L (136-145)
--- NOTE | 2019-08-03 18:25 | NUR ---
PT IS A/OX2, PLEASANT AND COOPERATIVE, THE PT IS ON O2 @ 3L/MIN VIA NC, THE PT IS BEDREST AT THIS TIME UNABLE TO STAND, THE PT IS VERY RESTLESS IN BED, PT COMPLAINS OF PAIN PT WAS MEDICATED FOR PAIN X2 TODAY, THE PT SLEPT FOR MOST OF THE DAY EASILY AWAKENED HOWEVER THIS AFTERNOON DURING A BREATHING TX THE PT BECAME TWITCHY AND UNABLE TO KEEP HER EYES OPEN STATED THAT SHE DIDNT FEEL RIGHT, THIS RN BECAME CONCERNED AND CALLED , HE CAME AND ASSESSED THE PT AND AT THAT TIME SHE APPEARED TO BE MORE ALERT AND TALKATIVE, THE PT WAS ABLE TO HAVE A FACE TIME CALL WITH HER FAMILY, PT WAS EVEN MORE AWAKE AT DINNER TIME, CALL LIGHT IN REACH, WILL CONTINUE TO MONITOR AND ASSESS FOR CHANGES PLAN IS FOR THE PT TO DISCHARGE HOME WITH FAMILY ANA MARÍA
--- NOTE | 2019-08-04 03:10 | NUR ---
RN STATES PT IS REFUSING CPAP. PT ON 3 LPM NC. PT ON CONTINUOUS OXIMETER. RN DISCUSSED IMPORTANCE OF CPAP PT STILL REFUSING.
--- NOTE | 2019-08-04 04:27 | NUR ---
SHIFT SUMMARY PT MOOD IS LABILE, THERE HAVE SEVERAL PERIODS DURING THE COURSE OF THE NIGHT WHEN SHE IS TEARFUL AND ANXIOUS. SHE IS ANXIOUS MOSTLY ABOUT HER PLAN OF CARE AND WHAT WILL HAPPEN NEXT, AND IS EAGERLY ANTICIPATING DC. PT IS VERY FORGETUL AND HAS A DIFFICULT TIME REMEMBERING COVERSATIONS THAT WERE JUST HAD. PT REMAINS VERY WEAK AND HAS VERY LITTLE USE OF HER UPPER EXT. GROSS MOVEMENT IN ARMS AND LEGS. WHEN PT IS REPOSITIONED SHE QUICKLY SLIDS BACK DOWN IN BED AGAIN. PT REMAINS ON O2. ATTEMPTED CPAP AT BEDTIME, BUT SHE CONTINUED TO REFUSE AND REMOVE IT DESPITE INSTRUCTION FROM THIS RN AND RT. PT FACETIME BOTH HER DAUGHERS THIS SHIFT AND IT LIFTED HER SPIRTS SOME. PLAN IS FOR DC HOME TOMORROW WITH HER DAUGHTER ONCE BED IS DELVIERED. NO ACUTE CHANGES OVER NIGHT. BED IN LOWEST POSITION, CALL LIGHT WITHIN REACH. WILL CONTINUE TO MONITOR AND REPORT TO ONCOMING RN.
[2019-08-04] MEDS ORDERED: ALBU2.5V5 INH (13:02)
[2019-08-04] MEDS ORDERED: ACYC800 PO (13:11)
[2019-08-04] MEDS ORDERED: Aspirin EC81 MG PO (13:11)
[2019-08-04] MEDS ORDERED: BASAGLAR K100 UNIT/1 SC (13:12)
[2019-08-04] MEDS ORDERED: LIDO700A20 TOP (13:12)
[2019-08-04] MEDS ORDERED: Pedi-Dri 100,0060 GM TOP (13:13)
[2019-08-04] MEDS ORDERED: Ropinirole HCl0.5 MG PO (13:13)
[2019-08-04] MEDS ORDERED: TOPI100 PO (13:14)
--- NOTE | 2019-08-04 19:30 | NUR ---
SUMM- PT ALERT TO SELF AND FAMILY. KNOWS WHERE SHE IS AND CIRCUMSCANCES. HAVING DELUSIONS- THINKS THERE ARE PEOPLE IN HER ROOM, AND THINKS SOUNDS ARE SOMETHING OTHER THAN THEY ARE. PT UNABLE TO USE CALL LIGHT. CONTINUALLY RESTLESS IN THE BED, LEANS TO THE RIGHT, BUT HAD BEEN UNABLE TO MOVE SELF TO ANY DEGREE. PT UP TO CHAIR FOR BREAKFAST THROUGH LUNCH TOLERATED FAIR. C/O BACK PAIN, MEDICATED WITH OXY Q4 WITH PARTIAL RELEIF. PT IS A FEEDER, HAS GROSS MOTOR IN ARMS BUT UNABLE TO ARTICULATE FEEDING. PLAN IS FOR PT TO GO HOME, BUT AWAITING BED APPROVAL AND DELIVERY TO HOUSE, [facility]AMLIL IS REFUSING SNF. PT HAD A UNWITNESSED FALL, SLIP OUT OF BED TODAY, NON INJURIOUS, JUST A SCUFF ON HER NECK/CHIN. NOTIVIED AND PT'S DAUGHTER.
--- NOTE | 2019-08-05 04:01 | NUR ---
SHIFT SUMMARY ASSUMED CARE OF PT AT 1900. PT IS A/O TO SELF, FAMILY, AND PLACE, DENIES N/T IN EXTREMITIES, PT TEARFUL AT TIMES AND CALLED DAUGHTER. HEART SOUNDS DISTANT, DENIES CP AT THIS TIME. LUNG SOUNDS DIMINISHED, ON 3L O2 BASELINE, NONCOMPLIANT WITH CPAP AND NASAL CANNULA DURING THE NIGHT, DENIES SOB AT THIS TIME, PT WILL DESAT WITH ACTIVITY. PT HAS BEEN INCONTINENT ALL NIGHT. PT HAS LOOSE STOOL. SHINGLE SCARS ARE SCABBED OVER, BUT RED. ABD FOLD, RODERICK AREA AND BUTTOCK ARE BROKEN OUT, RED AND PAINFUL TO TOUCH, NYSTATIN AND CREAMS APPLIED. NEW DRESSING APPLIED TO MIDLINE. NO ACUTE EVENTS OVERNIGHT. PT WAS AWAKE MOST OF THE NIGHT. CALL LIGHT IN REACH, BED IN LOWEST POSITION, WILL CONTINUE TO MONITOR UNTIL DAYSHIFT NURSE ARRIVES.
--- NOTE | 2019-08-05 14:30 | NUR ---
SHIFT SUMMARY PT RESTING QUIETLY AT START OF SHIFT, IN AIRBORNE ISO FOR SHINGLES. MORBIDLY OBESE WITH HX OF STROKE, PER REPORT. PT WITH GENERAL WEAKNESS AND ESPECIALLY L SIDED WEAKNESS; GROSS MOTOR SKILLS T/O. BACK STAYER WEAK; PT IS A FEEDER, TOLERATING SOFT DIET WELL. ABLE TO TAKE PO MEDS WHOLE WITH H2O. CENTENO TO GRAVITY, PATENT. CENTENO TO STAY IN AT D/C PER REPORT. PT HAS BEEN INCONTINENT OF BOWELS WITH LOOSE STOOLS. BUTTOCKS AND RODERICK AREA VERY EXCORIATED. CALAZIME LOTION APPLIED WITH EVERY ATTENDS CHANGE, WELL NYSTATIN PER EMAR. SKIN VERY PALE, DRY, AND THICK. RASH COVERING ENTIRE BACK; NEW TODAY PER AUTOMATIC LATHE OPERATOR THAT WORKED WITH HER YESTERDAY. DR LACY INFORMED. PER REPORT, PT LIVES WITH DAUGHTER AND TO GO HOME WHEN HOSPITAL BED IS DELIVERED. CM WORKING ON DETAILS. SHINGLES TO L BACK AREA, NO LONGER WEEPING, BUT NOT CRUSTED. PT IS CONFUSED AT BASELINE, BUT ABLE TO ANS SOME QUESTIONS. VERY WEAK, AND ONLY ABLE TO ASSIST SLIGHTLY AFTER BEING TURNED BY STAFF. PT IS A LIFT FOR TX TO CHAIR. BECAME AGITATED EARLIER TODAY; ATIVAN GIVEN PER EMAR X1. NO C/O PAIN. BED ALARM ON FOR SAFETY. NO FURTHER NEEDS AT THIS TIME.
[2019-08-05 23:49] LABS: Campylobacter Sp Not Detected (NOT DETECT)
[2019-08-05 23:50] LABS: Adenovirus F 40/41 Not Detected (NOT DETECT); Astrovirus Not Detected (NOT DETECT); Cryptosporidium Not Detected (NOT DETECT); Cyclospora Cayetanensis Not Detected (NOT DETECT); E. Coli O157 Not Detected (NOT DETECT); Entamoeba Histolytica Not Detected (NOT DETECT); Enteroaggregative E. coli-EAEC Not Detected (NOT DETECT); Enteropathogenic E. coli-EPEC Not Detected (NOT DETECT); Enterotoxigenic E. coli-ETEC Not Detected (NOT DETECT); Giardia Lamblia Not Detected (NOT DETECT); Norovirus GI/GII Not Detected (NOT DETECT); Plesiomonas Shigelloides Not Detected (NOT DETECT); Rotavirus A Not Detected (NOT DETECT); Salmonella Sp Not Detected (NOT DETECT); Sapovirus Not Detected (NOT DETECT); Shiga Toxin-prod E. coli-STEC Not Detected (NOT DETECT); Shigella/Enteroin E. coli-EIEC Not Detected (NOT DETECT); Vibrio Cholerae Not Detected (NOT DETECT); Vibrio Sp Not Detected (NOT DETECT); Yersinia Enterocolitica Not Detected (NOT DETECT)
--- NOTE | 2019-08-06 04:50 | NUR ---
SHIFT SUMMARY ADMITTED FOR COPD EXACERBATION/LLL PNEUMONIA. FULL CODE. AIRBORNE/CONTACT PRECAUTIONS FOR SHINGLES. SHE IS A LIFT PT, ON BEDREST @ BASELINE. SHE HAS MULTIPLE LOOSE STOOLS. RODERICK AREA AND BUTTOCKS ARE INFLAMED AND EXCORIATED, BARRIER CREAM APPLIED & NYSTATIN IN EMAR. CONTINUOUS CRUSHER OPERATOR ORDERED GI PANEL AND PROBIOTICS THIS SHIFT. PT NEGATIVE FOR CDIFF. IMMODIUM MAY NOW BE AN OPTION IF LOOSE STOOLS CONTINUE. PLAN IS FOR DC TODAY W/DAUGHTER IF HOME MEDICAL SUPPLIES CAN BE PROCURED. SHE IS A FEEDER, ON SOFT BITE SIZE/ADA DIET. 3 LPM O2 VIA NC IS HER BASELINE. PILLS MAY BE GIVEN WHOLE 2 AT A TIME IF PT HOB IS 90 DEGREES. SHE REFUSES CPAP. SHE WILL DC HOME WITH CENTENO IN PLACE. SHE IS INCONTINENT. HX: COPD, DM2, ANXIETY, DEPRESSION, ERIC, CHF, HYPERLIPIDEMIA, RIA.
--- NOTE | 2019-08-06 17:43 | NUR ---
ALERT TO SELF. RESTLESS IN BED. REORIENTED OFTEN TO WHY HERE. GIVEN STRETCH BANDS AND SHOWN HOW TO USE--USES FOR FEW EXERCISES. DOES NOT LEAVE OXYGEN ON. PER CASE MANAGEMENT DAUGHTER IS SUPPOSE TO HAVE HOSPITAL BED DELIVERED TODAY, SO POSSIBLE D'C TOMORROW. ADVISED CASE MANAGEMENT SHE WILL NEED TO GO BY CART. WILL NEED HAND HELD BREATHER PIPE SHE HAS BEEN USING HERE RELATIVES CAN NOT FIND HERS AT HOME. FEEDER. GOOD APPETITE. CENTENO PATENT. REDNESS TO; GROIN, ABD AND BUTTOCK LOOKS BETTER THAN LAST WEEK. WCTM
--- NOTE | 2019-08-07 06:33 | NUR ---
63 year old Female who had been admitted 20 days ago continues on baseline 3 l nc which she often removed. She is in airborne contact isolation for active shingles which are dry. She has cognitive deficit recent anoxia. She thinks she is Gadiel at her Daughter. DC planning for SNF but PT declines she is max 2 assist with lift bed in use. Has zhao cath to promote wound healing of moisture damage to rayray and perianal area. Incontinet of stool several times used bedpan x 1 . Needs fed and aspiration risk. Can use lower extremies minimally and upper extremities are very weak & PT reqires frequent repositioning. Medicated for co pain with oxycodone x 2 , ativan IV x 1 for anxiety with helpful effect. PT confused does not use call el.
[2019-08-07] MEDS ORDERED: PRED20 PO (11:23)
--- NOTE | 2019-08-07 15:55 | NUR ---
PT DISCHARGED FROM THE UNIT. DISCHARGE INSTRUCTIONS REVIEWED WITH DAUGHTER.MEDICATIONS FAXED TO [facility]. PT LEFT WITH TRANSPORT. IV REMOVED.
[2019-08-10] MEDS ORDERED: DAPSONE PO (13:09)
[2019-08-10] MEDS ORDERED: Buspirone HCl10 MG PO (13:11)
[2019-08-10] MEDS ORDERED: Simvastatin40 MG PO (13:11)
[2019-08-10] MEDS ORDERED: VITAMIN D350 MCG PO (13:11)
[2019-08-10] MEDS ORDERED: Doxepin HCl10 MG PO (13:11)
[2019-08-10] MEDS ORDERED: DULOXETINE HCL60 M1 PO (13:13)
[2019-08-12] MEDS ORDERED: PRED20 PO (02:36)
[2019-08-12] MEDS ORDERED: NYAMYC15 GM TOP (02:40)
[2019-08-12] MEDS ORDERED: Ventolin/Prove6.7 GM INH (02:47)
== END 2019-08-07 15:40 | disposition home health service (06) | DRG 207 ==
LOC: ER 08:37 → ICUW 11:48 → PCU 07-28 15:43 → MEDS 07-29 18:13 → ENPENDDIS 08-04 09:55 → MEDS 08-07 15:40
PROVIDERS: Emergency Medicine; Internal Medicine; Internal Medicine Critical Care Medicine; Internal Medicine Pulmonary Disease; Nurse Practitioner Acute Care; Pharmacist; ADMIT Internal Medicine
PROC: 0BH17EZ Insertion of Endotracheal Airway into Trachea, Via Natural or Artificial Opening (ICD-10-PCS; principal; 2019-07-17)
PROC: 5A1955Z Respiratory Ventilation, Greater than 96 Consecutive Hours (ICD-10-PCS; 2019-07-24)
PROC: 05H533Z Insertion of Infusion Device into Right Subclavian Vein, Percutaneous Approach (ICD-10-PCS; 2019-07-24)
DX: J96.21 Acute and chronic respiratory failure with hypoxia (principal); I50.33 Acute on chronic diastolic (congestive) heart failure; J12.3 Human metapneumovirus pneumonia; J44.1 Chronic obstructive pulmonary disease with (acute) exacerbation; Z68.43 Body mass index [BMI] 50.0-59.9, adult; J44.0 Chronic obstructive pulmonary disease with (acute) lower respiratory infection; I13.0 Hypertensive heart and chronic kidney disease with heart failure and stage 1 through stage 4 chronic kidney disease, or unspecified chronic kidney disease; G93.1 Anoxic brain damage, not elsewhere classified; E66.2 Morbid (severe) obesity with alveolar hypoventilation; E03.9 Hypothyroidism, unspecified; E11.59 Type 2 diabetes mellitus with other circulatory complications; E11.65 Type 2 diabetes mellitus with hyperglycemia; F32.9 Major depressive disorder, single episode, unspecified; F41.1 Generalized anxiety disorder; G47.33 Obstructive sleep apnea (adult) (pediatric); Z99.81 Dependence on supplemental oxygen; E11.22 Type 2 diabetes mellitus with diabetic chronic kidney disease; N18.9 Chronic kidney disease, unspecified; R09.2 Respiratory arrest; Z79.899 Other long term (current) drug therapy; B02.9 Zoster without complications; M54.9 Dorsalgia, unspecified; G89.29 Other chronic pain; T78.3XXA Angioneurotic edema, initial encounter
CPT/HCPCS: 0097U; 0099U; 31500; 31720; 36415; 36600; 51702; 70496; 70498; 71045; 71250; 80048; 80053; 80069; 80202; 81001; 82728; 82803; 82947; 83540; 83550; 83605; 83735; 83880; 84100; 84145; 84443; 84478; 85014; 85018; 85025; 85027; 87040; 87070; 87081; 87205; 87430; 87449; 92526; 92610; 93005; 93010; 93306; 94002; 94003; 94640; 94660; 94667; 94760; 94762; 96365-59; 96367-59; 96375-59; 97110; 97162; 97166; 97530; 97535; 99291-25; A9270-GY; C1751; J0330; J0360; J0456; J0461; J0692; J0696; J1100; J1200; J1650; J1940; J1956; J2060; J2310; J2405; J2543; J2704; J2920; J2930; J3010; J3370; J7030; J7050; J7512; P9046; Q0163; Q9967; U0002

== ENCOUNTER → 2020-02-16 | Outpatient (CLI) | payer OTHER ==
[~2020-02-16] MED LIST changes: +ACET325 PO; +ACYC800 PO; +ALBU2.5V5 INH; +Aspirin EC81 MG PO; +BASAGLAR K100 UNIT/1 SC; +Buspirone HCl10 MG PO; +CARVEDILOL6.25 MG PO; +DAPSONE PO; +DULOXETINE HCL60 M1 PO; +Doxepin HCl10 MG PO; +LIDO700A20 TOP; +METFORMIN HCL500 M3 PO; +MIDO5 PO; +NEURONTIN300 MG PO; +NYAMYC15 GM TOP; +Pedi-Dri 100,0060 GM TOP; +Ropinirole HCl0.5 MG PO; +SYNTHROID150 MC2 PO; +Simvastatin40 MG PO; +TOPI100 PO; +VITAMIN D350 MCG PO; +Ventolin/Prove6.7 GM INH
== END | disposition home or self-care (01) ==
LOC: PLD 10:28 → LAB SHORT 10:28
DX: L57.0 Actinic keratosis (principal)
CPT/HCPCS: 88305

== ENCOUNTER → 2020-04-05 | Outpatient (CLI) | payer OTHER | LOC: PLD 14:55 → LAB SHORT 14:55 | DX: C44.321 Squamous cell carcinoma of skin of nose (principal) | CPT/HCPCS: 88305 ==

== ENCOUNTER 2020-04-18 19:35 | Emergency (ER) | payer OTHER ==
[~2020-04-18] VITALS: Ht 170.2 cm; Wt 153.3 kg
[2020-04-18 20:13] LABS: BASOPHILS ABSOLUTE AUTO 0.02 K/mm3 (0.00-0.23); BASOPHILS PERCENT AUTO 0 % (0-2); EOSINOPHILS ABSOLUTE AUTO 0.07 K/mm3 (0.00-0.68); EOSINOPHILS PERCENT AUTO 1 % (0-6); Hematocrit 38.3 % (33.0-51.0); Hemoglobin 11.6 g/dL (11.5-16.0); IMMATURE GRAN ABSOLUTE AUTO 0.01 K/mm3 (0.00-0.10); IMMATURE GRAN PERCENT AUTO 0 % (0-1); LYMPHOCYTES ABSOLUTE AUTO 1.41 K/mm3 (0.84-5.20); LYMPHOCYTES PERCENT AUTO 26 % (21-46); MONOCYTES ABSOLUTE AUTO 0.32 K/mm3 (0.16-1.47); MONOCYTES PERCENT AUTO 6 % (4-13); Mean Corpuscular HGB 28.9 pg (26.0-34.0); Mean Corpuscular HGB Conc 30.3 g/dL (31.5-36.5); Mean Corpuscular Volume 95 fL (80-100); Mean Platelet Volume 10.1 fL (9.1-12.4); NEUTROPHILS PERCENT AUTO 67 % (41-73); Platelet Count 142 K/mm3 (150-400); RDW Coefficient Variation 13.4 % (11.7-14.2); Red Blood Cell Count 4.02 M/mm3 (3.80-5.20); White Blood Cell Count 5.53 K/mm3 (4.00-11.30)
[2020-04-18 20:24] LABS: Alanine Aminotransfer (ALT/SGP 29 U/L (12-78); Albumin, Blood 3.4 g/dL (3.4-5.0); Albumin/Globulin Ratio 0.9 (0.8-1.8); Alk Phos 101 U/L (50-136); Anion Gap 7 mmol/L (6-16); Aspartate Aminotrans (AST/SGOT 31 U/L (12-37); Bilirubin, Total 0.3 mg/dL (0.1-1.0); Blood Urea Nitrogen 14 mg/dL (8-24); Bun/Creatinine Ratio 21.1 (12.0-20.0); CO2, Blood 33 mmol/L (21-32); Calcium, Blood 9.6 mg/dL (8.5-10.1); Chloride, Blood 98 mmol/L (98-108); Creatinine, Blood 0.67 mg/dL (0.40-1.00); Globulin, Blood 3.9 g/dL (2.2-4.0); Glomerular Filtration Rate >60 (60-); Glucose, Blood 270 mg/dL (70-99); Potassium, Blood 4.1 mmol/L (3.5-5.5); Sodium, Blood 138 mmol/L (136-145); Total Protein, Blood 7.3 g/dL (6.4-8.2); Troponin I <0.015 ng/mL (0.000-0.040)
== END 2020-04-18 23:57 | disposition home or self-care (01) ==
LOC: ER 19:35
PROVIDERS: Emergency Medicine
DX: R07.9 Chest pain, unspecified (principal); E11.65 Type 2 diabetes mellitus with hyperglycemia; J44.9 Chronic obstructive pulmonary disease, unspecified; I11.0 Hypertensive heart disease with heart failure; I50.32 Chronic diastolic (congestive) heart failure; Z79.899 Other long term (current) drug therapy; Z79.82 Long term (current) use of aspirin; Z79.84 Long term (current) use of oral hypoglycemic drugs; Z99.81 Dependence on supplemental oxygen; Z87.891 Personal history of nicotine dependence
CPT/HCPCS: 36415; 71046; 80053; 84484; 85025; 93005; 93010; 99285-25

== ENCOUNTER 2020-07-08 14:16 | Emergency (ER) | payer OTHER ==
[~2020-07-08] VITALS: Ht 170.2 cm; Wt 151.9 kg
== END 2020-07-08 17:20 | disposition home or self-care (01) ==
LOC: ER 14:16
DX: S82.54XA Nondisplaced fracture of medial malleolus of right tibia, initial encounter for closed fracture (principal); J44.9 Chronic obstructive pulmonary disease, unspecified; I11.0 Hypertensive heart disease with heart failure; I50.32 Chronic diastolic (congestive) heart failure; E11.9 Type 2 diabetes mellitus without complications; E78.00 Pure hypercholesterolemia, unspecified; Z79.82 Long term (current) use of aspirin; Z79.899 Other long term (current) drug therapy; X50.1XXA Overexertion from prolonged static or awkward postures, initial encounter
CPT/HCPCS: 29515; 73610; 73630; 96372-59; 99283-25; J1885

== ENCOUNTER 2021-03-06 16:55 | Emergency (ER) | payer OTHER ==
[~2021-03-06] VITALS: Ht 165.1 cm; Wt 158.8 kg
[2021-03-06] MEDS ORDERED: IBUP600 PO (18:38)
[2021-03-06] MEDS ORDERED: ONDA4ODT MM (18:38)
[2021-03-06] MEDS ORDERED: BENZ100A PO (18:38)
== END 2021-03-06 19:41 | disposition home or self-care (01) ==
LOC: ER 16:55
DX: Z23 Encounter for immunization (principal); U07.1 COVID-19; I11.0 Hypertensive heart disease with heart failure; I50.9 Heart failure, unspecified; J44.9 Chronic obstructive pulmonary disease, unspecified; E11.9 Type 2 diabetes mellitus without complications; E78.00 Pure hypercholesterolemia, unspecified; Z87.891 Personal history of nicotine dependence
CPT/HCPCS: 96374; 99283-25; J1885; J7030; M0243; Q0243

== ENCOUNTER 2021-03-07 00:59 | Emergency (ER) | payer OTHER ==
[~2021-03-07] VITALS: Ht 165.1 cm; Wt 158.8 kg
[~2021-03-07 00:59] MED LIST changes: +ONDA4ODT MM
== END 2021-03-07 04:10 ==
LOC: ER 00:59
DX: U07.1 COVID-19 (principal); J96.00 Acute respiratory failure, unspecified whether with hypoxia or hypercapnia; I46.8 Cardiac arrest due to other underlying condition; R57.0 Cardiogenic shock; I11.0 Hypertensive heart disease with heart failure; I50.32 Chronic diastolic (congestive) heart failure; J44.9 Chronic obstructive pulmonary disease, unspecified; E11.9 Type 2 diabetes mellitus without complications; G47.30 Sleep apnea, unspecified; Z79.899 Other long term (current) drug therapy; Z79.84 Long term (current) use of oral hypoglycemic drugs; Z79.82 Long term (current) use of aspirin; Z87.891 Personal history of nicotine dependence
CPT/HCPCS: 31500; 92950; 96374; 96375; 99285-25; J0282